=== PATIENT | male | born 1965 | race Caucasian/White ===

== ENCOUNTER 2018-07-18 03:20 | Inpatient (IN) | payer OTHER ==
[2018-07-18] MEDS ORDERED: LORazepam 2 MG/ML SDV IVPUSH ONE ×6 (03:24→10:56)
[2018-07-18] MEDS ORDERED: Haloperidol Lactate 5 MG/ML SDV IVPUSH ONE ×2 (03:25→09:10)
[2018-07-18] MEDS ORDERED: LORazepam 2 MG/ML SDV ONE ×4 (03:26→10:51)
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
[2018-07-18] MEDS: Sodium Chloride 0.9% 1,000 ML IV SCH ×3 (03:40→18:21)
[2018-07-18] MEDS ORDERED: Ketamine 500 mg/10 ML MDV IV ONE ×4 (04:56→11:22)
[2018-07-18] MEDS ORDERED: Haloperidol Lactate 5 MG/ML SDV IVPUSH PRN ×2 (07:39→09:05)
--- NOTE | 2018-07-18 08:17 | PCM.HP ---
H&P History of Present Illness - General Date of Service: 07/18/18 Admit Problem/Dx: Admission Diagnosis/Problem Admission Diagnosis/Problem Overdose of analgesic Source of Information: Patient, Old Records, Provider, RN Notes Reviewed History Limitations: Reports: Altered Mental Status, Uncooperative, Other ( Severely Restless and agitated ) - History of Present Illness Initial Comments - Free Text/Narative: This is a 53 yo white male with past medical hx/o Impaired Vision, HTN, PAT, CKD Stage 2-3, Back Pain, Exophthalmia, Migraines, Peripheral Neuropathy, Hyperthyroidism, GERD, and Obesity Class I who was brought in by paramedics escorted by local police due to perceived intoxication. On presentation to ED, he was found incoherent, non sensible, somewhat uncooperative and agitated. It was felt he was on some sort of stimulant. His breath smells alcohol during examination. While in ED, he received initial treatment but partially responded so he was brought to the unit for further management with 1 on 1 care. His initial work up in ED shows a CBC remarkable for WBC of 10.55, RBC of 4.45, MCV of 94.8, MCH of 32.8, and RDW of 44.2. His chemistry is significant for CO2 of 20, AG of 19.6, BUN of 23, Cr of 1.4, BS of 127 and Total Protein of 8.7. His UA is not suggestive of UTI but rather inadequate fluid intake. His UDS is pos for Oxy, Benzo and Salicylates. His RON level is 0.09. However while in the unit, his symptoms continue to get worse and he clinically deteriorate. Therefore to prevent further decline of his respiratory status and for his own safety, we elected to sedate him and put him on mechanical ventilator until his body clears off whatever he took on top of alcohol. He is essentially being admitted for alcohol detoxification associated with severe agitation and restlessness cannot r/o withdrawal symptoms. - Related Data Allergies/Adverse Reactions: Allergies Allergy/AdvReac Type Severity Reaction Status Date / Time venom-honey bee Allergy Anaphylactic Verified 07/18/18 18:34 [bee venom (honey bee)] Shock morphine AdvReac Mild Headache Verified 07/18/18 18:34 Home Medications: Home Meds Lisinopril 20 mg PO DAILY 11/14/13 [History] traZODone 300 mg PO BEDTIME PRN 11/14/13 [History] oxyCODONE ER [OxyCONTIN] 40 mg PO BID 05/15/14 [History] Methylphenidate HCl [Ritalin] 20 mg PO BID 10/19/14 [History] Gabapentin [Neurontin] 1,200 mg PO TID 12/13/14 [History] Omeprazole [Prilosec] 40 mg PO DAILY PRN 12/13/14 [History] SUMAtriptan [Imitrex] 20 mg INH BID PRN 12/13/14 [History] Past Medical History HEENT History: Reports: Impaired Vision Cardiovascular History: Reports: Hypertension Other Respiratory History: sleep apnea resolved with "nose and throat surgery" Other Genitourinary History: had renal failure Musculoskeletal History: Reports: Back Pain, Chronic Neurological History: Reports: Migraines Other Neuro History: .peripheral neuropathy both legs with weakness Lt. > Rt. Endocrine/Metabolic History: Reports: Hyperthyroidism Dermatologic History: Reports: Cellulitis - Infectious Disease History Infectious Disease History: Reports: Chicken Pox, MRSA - Past Surgical History HEENT Surgical History: Reports: Adenoidectomy, Other (See Below) Other Respiratory Surgeries/Procedures: sleep apnea resolved with T and A with uvula surgery Neurological Surgical History: Reports: Lumbar Spine Musculoskeletal Surgical History: Reports: Knee Replacement, Other (See Below) Social & Family History - Family History Family Medical History: Noncontributory - Caffeine Use Caffeine Use: Reports: Energy Drinks - Sexual History Sexual History: Reports: Sexually Active - Living Situation & Occupation Living situation: Reports: Occupation: Employed H&P Review of Systems - Review of Systems: Review Of Systems: Unable To Obtain Review of Systems Comment:: Unable to obtain. He was non-sensible/incoherent/restless and agitated earlier. Now he is sedated/intubated on mechanical ventilator. Exam - Exam Exam: See Below - Vital Signs Vital Signs: Last Vital Signs Temp 36.5 C 07/18/18 03:24 Pulse Resp BP 163/100 H 07/18/18 03:24 Pulse Ox - Exam General: Other (Obese) HEENT: Nares Patent, Other (b/l eye proptosis; ET and NGT in placed) Neck: Supple Lungs: Normal Respiratory Effort, Other (mechancical breath sound) Cardiovascular: Regular Rate, Regular Rhythm GI/Abdominal Exam: Normal Bowel Sounds, Soft, Non-Tender, No Organomegaly, No Distention, No Abnormal Bruit (Male) Exam: Other (indwelling florence catheter) Rectal (Males) Exam: Deferred Back Exam: Other (deferred) Extremities: Non-Tender, No Pedal Edema, Normal Capillary Refill Peripheral Pulses: 3+: Posterior Tibial (L), Posterior Tibial (R), Dorsalis Pedis (L), Dorsalis Pedis (R) Skin: Dry, Intact Neuro Extensive - Mental Status: Other (not appropriate) Psychiatric: Other (sedate/intubated on mechanical ventilator) Physical Exam Comments:: Physical exam is very limited. He is sedated/intubated on mechanical ventilator. - Patient Data Lab Results Last 24 hrs: Laboratory Results - last 24 hr 07/18/18 07/18/18 07/18/18 Range/Units 03:20 03:20 03:20 WBC 10.55 H (4.23-9.07) K/mm3 RBC 4.45 L (4.63-6.08) M/mm3 Hgb 14.6 (13.7-17.5) gm/L Hct 42.2 (40.1-51.0) % MCV 94.8 H (79.0-92.2) fl MCH 32.8 H (25.7-32.2) pg MCHC 34.6 (32.2-35.5) g/dl RDW Std Deviation 44.2 H (35.1-43.9) fL Plt Count 273 (163-337) K/mm3 MPV 10.6 (9.4-12.3) fl Neutrophils % (Manual) 52 (40-60) % Band Neutrophils % 0 (0-10) % Lymphocytes % (Manual) 38 (20-40) % Atypical Lymphs % 0 % Monocytes % (Manual) 7 (2-10) % Eosinophils % (Manual) 3 (0.8-7.0) % Basophils % (Manual) 0 L (0.2-1.2) Platelet Estimate Adequate RBC Morph Comment Normal Sodium 139 (136-145) mEq/L Potassium 3.6 (3.5-5.1) mEq/L Chloride 103 (98-107) mEq/L Carbon Dioxide 20 L (21-32) mEq/L Anion Gap 19.6 H (5-15) BUN 23 H (7-18) mg/dL Creatinine 1.4 H (0.7-1.3) mg/dL Est Cr Clr Drug Dosing TNP Estimated GFR (MDRD) 53 (>60) mL/min BUN/Creatinine Ratio 16.4 (14-18) Glucose 127 H (74-106) mg/dL Calcium 10.0 (8.5-10.1) mg/dL Total Bilirubin 0.2 (0.2-1.0) mg/dL AST 23 (15-37) U/L ALT 31 (16-63) U/L Alkaline Phosphatase 83 (46-116) U/L Total Protein 8.7 H (6.4-8.2) g/dl Albumin 4.3 (3.4-5.0) g/dl Globulin 4.4 gm/dL Albumin/Globulin Ratio 1.0 (1-2) Urine Color (Yellow) Urine Appearance (Clear) Urine pH (5.0-8.0) Ur Specific [place] (1.005-1.030) Urine Protein (Negative) Urine Glucose (UA) (Negative) Urine Ketones (Negative) Urine Occult Blood (Negative) Urine Nitrite (Negative) Urine Bilirubin (Negative) Urine Urobilinogen (0.2-1.0) Ur Leukocyte Esterase (Negative) Urine RBC (0-5) /hpf Urine WBC (0-5) /hpf Ur Epithelial Cells (0-5) /hpf Urine Bacteria (FEW) /hpf Urine Mucus (FEW) /hpf Salicylates (2.8-20) mg/dL Urine Opiates Screen (FPYOKC=451) Ur Buprenorphine Scrn (CUTOFF=10) Ur Oxycodone Screen (NDF7QR=221) Urine Methadone Screen (NZI2SY=307) Ur Propoxyphene Screen (QLCNCF=973) Acetaminophen 0 L (10-30) ug/mL Ur Barbiturates Screen (IFPKSA=767) Ur Tricyclics Screen (ZHJUYD=248) Ur Phencyclidine Scrn (CUTOFF=25) Ur Amphetamine Screen (XAMHXL=523) U Methamphetamines Scrn (DJOLWY=123) U Benzodiazepines Scrn (MAHOWX=112) U Cocaine Metab Screen (ZMWWEZ=562) U Marijuana (THC) Screen (CUTOFF=50) Ethyl Alcohol 0.09 (0.00) gm% 07/18/18 07/18/18 07/18/18 Range/Units 03:20 04:49 04:49 WBC (4.23-9.07) K/mm3 RBC (4.63-6.08) M/mm3 Hgb (13.7-17.5) gm/L Hct (40.1-51.0) % MCV (79.0-92.2) fl MCH (25.7-32.2) pg MCHC (32.2-35.5) g/dl RDW Std Deviation (35.1-43.9) fL Plt Count (163-337) K/mm3 MPV (9.4-12.3) fl Neutrophils % (Manual) (40-60) % Band Neutrophils % (0-10) % Lymphocytes % (Manual) (20-40) % Atypical Lymphs % % Monocytes % (Manual) (2-10) % Eosinophils % (Manual) (0.8-7.0) % Basophils % (Manual) (0.2-1.2) Platelet Estimate RBC Morph Comment Sodium (136-145) mEq/L Potassium (3.5-5.1) mEq/L Chloride (98-107) mEq/L Carbon Dioxide (21-32) mEq/L Anion Gap (5-15) BUN (7-18) mg/dL Creatinine (0.7-1.3) mg/dL Est Cr Clr Drug Dosing Estimated GFR (MDRD) (>60) mL/min BUN/Creatinine Ratio (14-18) Glucose (74-106) mg/dL Calcium (8.5-10.1) mg/dL Total Bilirubin (0.2-1.0) mg/dL AST (15-37) U/L ALT (16-63) U/L Alkaline Phosphatase (46-116) U/L Total Protein (6.4-8.2) g/dl Albumin (3.4-5.0) g/dl Globulin gm/dL Albumin/Globulin Ratio (1-2) Urine Color Yellow (Yellow) Urine Appearance Clear (Clear) Urine pH 5.5 (5.0-8.0) Ur Specific [place] > or = 1.030 (1.005-1.030) Urine Protein 1+ H (Negative) Urine Glucose (UA) Negative (Negative) Urine Ketones Trace H (Negative) Urine Occult Blood Negative (Negative) Urine Nitrite Negative (Negative) Urine Bilirubin Negative (Negative) Urine Urobilinogen 0.2 (0.2-1.0) Ur Leukocyte Esterase Negative (Negative) Urine RBC 0-5 (0-5) /hpf Urine WBC 0-5 (0-5) /hpf Ur Epithelial Cells 0-5 (0-5) /hpf Urine Bacteria Not seen (FEW) /hpf Urine Mucus Few (FEW) /hpf Salicylates 2.0 L (2.8-20) mg/dL Urine Opiates Screen Negative (TIYZMC=207) Ur Buprenorphine Scrn Negative (CUTOFF=10) Ur Oxycodone Screen Presumptive positive H (YBG8IZ=329) Urine Methadone Screen Negative (FMA9JN=947) Ur Propoxyphene Screen Negative (HADADO=226) Acetaminophen (10-30) ug/mL Ur Barbiturates Screen Negative (TSSKDH=854) Ur Tricyclics Screen Negative (SZJYXF=514) Ur Phencyclidine Scrn Negative (CUTOFF=25) Ur Amphetamine Screen Negative (FERRMH=686) U Methamphetamines Scrn Negative (KPSIAC=338) U Benzodiazepines Scrn Presumptive positive H (ESVHYZ=683) U Cocaine Metab Screen Negative (WUEKLP=730) U Marijuana (THC) Screen Negative (CUTOFF=50) Ethyl Alcohol (0.00) gm% Result Diagrams: 07/19/18 04:18 07/19/18 04:18 EKG INTERPRETATION EKG Date: 07/18/18 Time: 13:14 Rhythm: Other (Sinus Rhythm) Rate (Beats/Min): 79 Problem List Initiated/Reviewed/Updated: Yes Orders Last 24hrs: Active Orders 24 hr Category Date Time Status Admission Status [Patient Status] [ADT] Routine ADT 07/18/18 06:44 Active EKG Documentation Completion [RC] STAT Care 07/18/18 03:26 Active Haloperidol Lactate [Haldol] Med 07/18/18 07:39 Active 10 mg IVPUSH Q6HR PRN LORazepam [Ativan] Med 07/18/18 07:37 Active 2 mg IVPUSH Q30M PRN Sodium Chloride 0.9% [Normal Saline] 1,000 ml Med 07/18/18 03:30 Active IV ASDIRECTED One To One Therapy [BH] Stat Oth 07/18/18 07:37 Ordered Medication Orders Haloperidol Lactate (Haldol) 10 mg IVPUSH Q6HR PRN PRN Reason: Anxiety Sodium Chloride (Normal Saline) 1,000 mls @ 150 mls/hr IV ASDIRECTED [facility] Last Admin: 07/18/18 03:40 Dose: 150 mls/hr Lorazepam (Ativan) 2 mg IVPUSH Q30M PRN PRN Reason: Anxiety Assessment/Plan Comment:: Assessment/Plan: Acute: Hypermetabolic Encephalopathy on Mechanical Vent - 2/2 Unknown drug(s) he possibly he took - UDS pos for benzo and Oxy - CXR essentially shows no acute abnormal findings - Very difficult sedation; required multiple sedatives and considerable amount of paralytics during the intubation process - He is now comfortably sedated on mechanical ventilator - Head CT scan showed no acute intra-cranial abnormality - VT setting AC 500, 3PEEP, RR14 and FiO2 of 40%; will adjust pending ABG result in 3 hrs Severe Agitation/Restlessness - Unknown or Unclear etiology - Suspect he took LSD per - He carries a hx/o heavy substance abuse per brother - RON level is 0.09 - Very difficult to sedate and it took considerable amount of staff to keep stay still in bed CKD Stage 2-3 - BUN 23 and CR 1.4 - IVF at 125cc/hr - UA spec gravity shows > or = 1.030 - Florence catheter to monitor output and Strict Is/Os ETOH Abuse w/ Possible Withdrawal Symptoms - Carries a hx/o Substance Abuse - RON 0.09 - He was at [facility] having a good time with co-workers - CIWA Score: very high - Ativan/Librium/Clonidine/Topamax - Hydralazine and IVP BB for HR/BP control - Ativan for Abortive Seizure and Withdrawal Symptoms Chronic: Impaired Vision HTN PAT CKD Stage 2-3 Back Pain Migraines Peripheral Neuropathy Hyperthyroidism GERD Obesity Class I Plan: Admit to ICU Routine AM Labs One on One care CIWAA Protocol MVI, Folic Acid and Thiamine Ativan for Abortive Seizure and Withdrawal Symptoms PRN meds for Withdrawal Symptoms DVT and GI PPx: Lovenox and H2B Aspiration/Seizure Precautions Vent protocol w/ RASS of -4 for now SW/CM d/c planning SA/Psych consult once off ventilator Code Status: 1
[2018-07-18] MEDS ORDERED: SUMATRIPTAN 20 MG INH PRN (08:56)
[2018-07-18] MEDS ORDERED: hydrALAZINE 20 MG/ML SDV IVPUSH PRN (08:57)
[2018-07-18] MEDS ORDERED: LORazepam 2 MG/ML SDV IVPUSH PRN (08:57)
[2018-07-18] MEDS ORDERED: Metoprolol Tartrate 5 MG/5 ML SDV IVPUSH PRN (08:57)
[2018-07-18] MEDS ORDERED: Bisacodyl 5 MG Tab PO PRN (08:58)
[2018-07-18] MEDS ORDERED: Promethazine 6.25 MG in Sodium Chloride 0.9% 50 ML IV PRN (08:58)
[2018-07-18] MEDS ORDERED: Ondansetron 4 MG/2 ML SDV IV PRN (08:58)
[2018-07-18] MEDS ORDERED: Albuterol/Ipratropium 3.0-0.5 MG/3 ML Neb Soln NEB PRN (08:58)
[2018-07-18] MEDS ORDERED: Acetaminophen/HYDROcodone 325-5 MG Tab PO PRN (08:58)
[2018-07-18] MEDS ORDERED: Docusate Sodium 100 MG Cap PO PRN (08:58)
[2018-07-18] MEDS ORDERED: Polyethylene Glycol 3350 Powder 17 GM Packet PO PRN (08:58)
[2018-07-18] MEDS ORDERED: Acetaminophen 325 MG Tab PO PRN (08:58)
[2018-07-18] MEDS ORDERED: HYDROmorphone 1 MG/ML Syringe IVPUSH PRN (08:58)
[2018-07-18] MEDS ORDERED: Methylphenidate 10 MG Tab PO SCH (09:00)
[2018-07-18] MEDS ORDERED: cloNIDine 0.1 MG Tab PO PRN (09:02)
[2018-07-18] MEDS ORDERED: Thiamine 100 MG in Sodium Chloride 0.9% 50 ML IV ONE (09:02)
[2018-07-18] MEDS ORDERED: chlordiazePOXIDE 25 MG Cap PO PRN (09:02)
[2018-07-18] MEDS ORDERED: Folic Acid 50 MG/10 ML MDV SUBCUT ONE (09:02)
[2018-07-18] MEDS ORDERED: Sodium Chloride 0.9% 1,000 ML IV SCH (09:15)
[2018-07-18] MEDS ORDERED: Thiamine 200 MG/2 ML MDV IVPUSH ONE (09:30)
[2018-07-18] MEDS: LORazepam 2 MG/ML SDV IVPUSH PRN (10:01)
[2018-07-18] MEDS ORDERED: Rocuronium 50 MG/5 ML Vial IVPUSH ONE ×2 (11:45→12:42)
--- NOTE | 2018-07-18 11:57 | PCM.SN ---
- Free Text/Narrative Note: Upon presentation patient was still restless, severely agitated, confused, incoherent/non-sensible, mumbles and attempting to get out bed. He has urinated in bed a few times and unable to stay still. He requires one on one care at this point. No family members present at beside to give a hx of present illness. However a review of treatment he received in ED shows he has gotten multiple sedatives such as haldol, ketamine and numerous ativan but barely responsive to all of it. In the unit, he received additional haldol dose and at least a total of 10 mg of ativan and still would not calm down. Unknown and uncertain of what exactly he took (we reviewed his UDS) in the setting of worsening restlessness, agitation, confusion; we went ahead and put a tube in his throat and put him on ventilator to rest for at least 24-48hrs before he goes into respiratory distress and eventually respiratory arrest.
--- NOTE | 2018-07-18 11:57 | PCM.PRNOTE ---
- Free Text/Narrative Note: Endotracheal Intubation Date: 07/18/2018 Time: 1150 Indication: Severe Agitation, Restlessness and AMS Attending: Miracle Romo DO A time-out was completed verifying correct patient, procedure, site, positioning , and special equipment if applicable. The patient was placed in a flat position. Sedation was obtained using Ketamine 100 mg,Versed 5 mg, and additionally with Rocuronium 100 mg. The patient was not easily sedated so Propofol drip was added. Once adequate sedation is achieved he was ventilated using an ambu bag. Electronic glide scope was utilized initially using MAC 4 blade but it produced a poor view of his oropharynx. However after switching to MAC 3 blade, a Grade 1 view of the vocal cords was exposed. An 8-korean endotracheal tube was inserted and visualized going through the vocal cords. The stylette was removed. Colorimetric change was visualized on the CO2 meter. Breath sounds were heard in both lung beltran equally. The endotracheal tube was placed initially at 26 cm, measured at the lip but later adjusted to 24 cm. A chest x-ray was ordered to assess for pneumothorax and verify endotracheal tube placement.
[2018-07-18] MEDS ORDERED: Midazolam 1 MG/ML 5 ML SDV IVPUSH ONE (12:22)
[2018-07-18] MEDS ORDERED: Midazolam 1 MG/ML 2 ML SDV ONE ×2 (12:23→12:26)
[2018-07-18] MEDS ORDERED: Piperacillin/Tazobactam 4.5 GM in Sodium Chloride 0.9% 100 ML IV ONE (13:00)
[2018-07-18] MEDS: Midazolam 50 MG in Sodium Chloride 0.9% 40 ML IV SCH ×2 (13:15→22:06)
[2018-07-18] MEDS: Gabapentin 600 MG Tab PO SCH ×3 (13:26→20:41)
[2018-07-18] MEDS: Potassium Chloride 20 MEQ Tab.ER PO SCH ×2 (13:27→16:17)
[2018-07-18] MEDS: oxyCODONE ER 20 MG TAB.ER PO SCH ×2 (13:27→20:42)
[2018-07-18] MEDS: Lisinopril 20 MG Tab PO SCH (13:30)
[2018-07-18] MEDS: Saccharomyces Boulardii (Probiotic) 250 MG Cap PO SCH ×2 (16:17→20:41)
[2018-07-18] MEDS: Pantoprazole 40 MG Vial IV SCH ×2 (16:17→20:55)
--- NOTE | 2018-07-18 16:23 | PCM.SN ---
- Free Text/Narrative Note: Met up with his and 's friend. They think he may have been given LSD by his co-workers at [facility]. His last known well was 2 AM this morning. He was not sick or perceived to be ill at that time. He is a non known illicit drug user because "he loves his job" according to his . His also states that he hates using narcotic drugs. His was informed about what we did and explained to her why we had to put him on a ventilator. His head CT scan was taken to make sure nothing is abnormal. We attempted to perform a LP a few times to r/o meningo-encephalitis but w/o much success. Additionally, we informed his , patient hopefully gonna be on the vent for at least 48hrs to ride out whatever he took until his body clears it off his system.
--- NOTE | 2018-07-18 16:23 | PCM.SN ---
- Free Text/Narrative Note: Attempted Lumbar Puncture Time Start: 1455 Stop: 1545 I was called to see Troy Romo in the ICU for lumbar puncture. The chart was reviewed. Troy is intubated, agitated, and on IV sedation infusion. His Akila Romo was called for consent. Akila was able to verify Troy is not on anticoagulation. Troy has had a previous lumbar back surgery involving rods and plates per her description. After discussing the risks including, but not limited to, bleeding, infection, nerve damage, post dural puncture, and possibility of not being able to successfully perform the procedure given his history of lumbar surgery. Informed consent was received and verified with RN. Troy Romo was placed in the lateral position with the assistance of 3 nursing staff. Sedation was increased to assist with immobility during the procedure. After identifying anatomic landmarks the skin was prepped with ChloraPrep x 3 and allowed to dry. Difficult palpation of spinous processes, hip crest palpable. Sterile precautions were observed, including masks by everyone in the room, a cap, sterile drape, and sterile gloves. The skin and subcutaneous tissues were anesthetized with 1% lidocaine at L3-4. A 22 gauge Whitacure 3-1/2 inch was advanced slowly with stylet removed intermittently to check for CSF fluid. No dural pop was appreciated. Needle was redirected and repositioned without achieving appropriate placement. Troy was repositioned by assisting staff and sedation increased to help with agitation. Dr. Romo was notified of difficulty and came to the room to assist. The skin and subcutaneous tissues were anesthetized with 1% lidocaine at L2-3. A 22 gauge Whitacure 3-1/2 inch was advanced slowly with stylet removed intermittently to check for CSF fluid. No dural pop was appreciated. Needle was redirected and repositioned without achieving appropriate placement. A 25 gauge Whitacure 3-1/ 2 inch was advanced slowly with stylet removed intermittently to check for CSF fluid. No dural pop was appreciated. Needle was redirected and repositioned without achieving appropriate placement. Akila Romo was informed of the inability to obtain CSF sample at this time. Dr. Romo present and aware. Kwasi Duque, [employer]
[2018-07-18] MEDS ORDERED: Enoxaparin 30 MG/0.3 ML Syringe SUBCUT SCH (16:30)
[2018-07-18] MEDS: METHYLPHENIDATE 10 MG PO SCH (20:42)
[2018-07-18] MEDS: Piperacillin/Tazobactam 4.5 GM in Sodium Chloride 0.9% 100 ML IV SCH (20:55)
[2018-07-18] MEDS: Topiramate 25 MG Tab PO SCH (22:12)
[2018-07-18] MEDS: QUEtiapine 25 MG Tab PO SCH (22:12)
[2018-07-19] MEDS: Sodium Chloride 0.9% 1,000 ML IV SCH ×3 (01:13→15:48)
[2018-07-19] MEDS: Piperacillin/Tazobactam 4.5 GM in Sodium Chloride 0.9% 100 ML IV SCH ×3 (05:03→20:41)
--- NOTE | 2018-07-19 07:04 | CR ---
Chest: Portable supine view of the chest was obtained (12:07 PM). Comparison: Previous chest x-ray performed earlier on the same day (12:00 PM). Endotracheal tube appears satisfactory in position. Heart size is within normal. Tortuous thoracic aorta is seen. Study still obtained in mild expiratory phase causing some increased density within both lungs. Bony structures are grossly intact. Impression: 1. Satisfactory position of endotracheal tube. 2. Study continues to be obtained in expiratory phase causing areas of increased density within both lungs. Diagnostic code #3 Mild agree with preliminary report from [facility], finalized on 07/18/18, 1:48 PM Central Time, code #2
--- NOTE | 2018-07-19 07:04 | CR ---
Chest: Portable view of the chest was obtained (12:00 PM) Comparison: Previous chest x-ray of 03/06/15. Tip of endotracheal tube lies at the level of the lyla. This should be withdrawn by approximately 3-4 cm. Study was obtained in expiration. This causes some areas of increased density within both lungs. Heart size is within normal limits for portable technique. Impression: 1. Increased density within both lung bases. Most of this likely relates to expiratory film. 2. Tip of endotracheal tube lies at the level of the lyla as noted above. 3. Heart size felt to be within normal limits for portable technique. Diagnostic code #5 Minimal disagree with preliminary report from [facility], finalized on 07/18/18, 1:45 PM Central Time, code #2
--- NOTE | 2018-07-19 07:08 | CR ---
Chest: Portable view of the chest was obtained (12:52 PM). Comparison: Previous chest x-rays performed on the same day, most recent study was performed at 12:07 PM. Heart size within normal limits for portable technique. Tortuous thoracic aorta is seen. Tip of endotracheal tube is satisfactory in position with tip lying at the level of the clavicles. Nasogastric tube is coiled within the stomach. Lungs are better aerated with better inspiratory study. No acute parenchymal change is appreciated. Impression: 1. Satisfactory position of endotracheal tube and nasogastric tube. 2. Better aeration of both lungs with no acute parenchymal change being seen. Diagnostic code #2 Slightly agree with preliminary report from [facility], finalized on 07/18/18, 2:01 PM Central Time
--- NOTE | 2018-07-19 08:07 | CR ---
Chest: Portable view of the chest was obtained. Comparison: Prior chest x-ray of 07/18/18. Heart is slightly more prominent than on prior exam. Tortuous thoracic aorta is seen. Lungs show minimal bibasilar atelectasis. Lungs otherwise are clear. Endotracheal tube is seen with tip lying at the level of the clavicles which is satisfactory position. Nasogastric tube lies within the expected area of the stomach. Impression: 1. Heart size slightly more prominent than on prior exam. 2. Mild bibasilar atelectasis. 3. Endotracheal tube and nasogastric tube as noted above. Diagnostic code #2
--- NOTE | 2018-07-19 08:12 | CT ---
Head CT Technique: Multiple axial sections through the brain were obtained. Intravenous contrast was not utilized. Comparison: Prior head CT exam of 01/11/15. Findings: Ventricles along with basal cisterns and sulci over the convexities are within normal limits. So-called empty sella is again noted which is stable from prior head CT. No other abnormal parenchymal densities are seen. No evidence of intracranial hemorrhage. No midline shift or mass effect is seen. Bone window settings were reviewed which show the visualized sinuses to appear clear. No acute calvarial abnormality is seen. Impression: 1. Incidental empty sella which is stable from prior head CT exam. 2. Nothing acute is appreciated on noncontrast head CT exam. Diagnostic code #2 I agree with preliminary report from [facility], finalized on 07/18/18, 3:50 PM Central Time
[2018-07-19] MEDS: Saccharomyces Boulardii (Probiotic) 250 MG Cap PO SCH ×3 (08:44→20:27)
[2018-07-19] MEDS: Famotidine 20 MG Tab PO SCH ×2 (08:45→20:28)
[2018-07-19] MEDS: Gabapentin 600 MG Tab PO SCH ×3 (08:45→20:28)
[2018-07-19] MEDS: Lisinopril 20 MG Tab PO SCH (08:45)
[2018-07-19] MEDS: Folic Acid 1 MG Tab PO SCH (08:45)
[2018-07-19] MEDS: Thiamine 100 MG Tab PO SCH (08:46)
[2018-07-19] MEDS: METHYLPHENIDATE 10 MG PO SCH ×2 (08:46→20:28)
[2018-07-19] MEDS: Multivitamins,Therapeutic Tab PO SCH (08:46)
[2018-07-19] MEDS: Topiramate 25 MG Tab PO SCH ×2 (08:46→20:28)
[2018-07-19] MEDS: oxyCODONE ER 20 MG TAB.ER PO SCH ×2 (08:48→20:28)
[2018-07-19] MEDS ORDERED: Enoxaparin 30 MG/0.3 ML Syringe SUBCUT SCH (09:00)
[2018-07-19] MEDS: Midazolam 50 MG in Sodium Chloride 0.9% 40 ML IV SCH ×2 (11:07→22:35)
[2018-07-19] MEDS ORDERED: Thiamine 200 MG/2 ML MDV IVPUSH ONE (15:30)
[2018-07-19] MEDS ORDERED: Folic Acid 50 MG/10 ML MDV SUBCUT ONE (15:30)
--- NOTE | 2018-07-19 16:26 | PCM.PN ---
- General Info Date of Service: 07/19/18 Admission Dx/Problem (Free Text): Admission Diagnosis/Problem Admission Diagnosis/Problem Overdose of analgesic Subjective Update: Follow Up Functional Status: Reports: Pain Controlled, Urinating. Denies: New Symptoms - Review of Systems General: Denies: Fever, Chills Gastrointestinal: Denies: Nausea, Vomiting Systems Review Comment:: Patient is sedated/intubated on mechanical ventilator. - Patient Data Vitals - Most Recent: Last Vital Signs Temp 36.1 C 07/19/18 12:00 Pulse 59 L 07/19/18 15:00 Resp 15 07/19/18 15:00 BP 127/86 07/19/18 15:00 Pulse Ox 99 07/19/18 15:00 Weight - Most Recent: 127.596 kg I&O - Last 24 Hours: Intake & Output 07/19/18 07/19/18 07/19/18 06:59 14:59 22:59 Intake Total 3054 Output Total 450 600 Balance 2604 -600 Lab Results Last 24 Hours: Laboratory Results - last 24 hr 07/19/18 07/19/18 07/19/18 Range/Units 04:18 04:18 06:35 WBC 8.73 (4.23-9.07) K/mm3 RBC 4.03 L (4.63-6.08) M/mm3 Hgb 13.2 L (13.7-17.5) gm/L Hct 39.5 L (40.1-51.0) % MCV 98.0 H (79.0-92.2) fl MCH 32.8 H (25.7-32.2) pg MCHC 33.4 (32.2-35.5) g/dl RDW Std Deviation 48.3 H (35.1-43.9) fL Plt Count 215 (163-337) K/mm3 MPV 11.1 (9.4-12.3) fl Neut % (Auto) 68.9 H (34.0-67.9) % Lymph % (Auto) 17.9 L (21.8-53.1) % Victoria % (Auto) 10.7 (5.3-12.2) % Eos % (Auto) 1.8 (0.8-7.0) Baso % (Auto) 0.6 (0.1-1.2) % Neut # (Auto) 6.02 H (1.78-5.38) K/mm3 Lymph # (Auto) 1.56 (1.32-3.57) K/mm3 Victoria # (Auto) 0.93 H (0.30-0.82) K/mm3 Eos # (Auto) 0.16 (0.04-0.54) K/mm3 Baso # (Auto) 0.05 (0.01-0.08) K/mm3 Puncture Site Rt radial ABG pH 7.37 (7.35-7.45) ABG pCO2 39.3 (35.0-45.0) mmHg ABG pO2 80.0 (80.0-100.0) mmHg ABG HCO3 22.1 (22.0-26.0) meq/L ABG O2 Saturation 95.1 L (96.0-97.0) % ABG Base Excess -2.4 L (-2-2.0) Jeramie Test Positive A-a Gradient 63 mmHg O2 Delivery Device Ventilator FiO2 30.00 (21.00-100.00) % Tidal Volume 500.0 cc PEEP 5.0 cmH20 Sodium 141 (136-145) mEq/L Potassium 3.7 (3.5-5.1) mEq/L Chloride 108 H (98-107) mEq/L Carbon Dioxide 24 (21-32) mEq/L Anion Gap 12.7 (5-15) BUN 14 (7-18) mg/dL Creatinine 1.0 (0.7-1.3) mg/dL Est Cr Clr Drug Dosing 103.68 mL/min Estimated GFR (MDRD) > 60 (>60) mL/min BUN/Creatinine Ratio 14.0 (14-18) Glucose 97 (74-106) mg/dL Calcium 9.3 (8.5-10.1) mg/dL Magnesium 2.0 (1.8-2.4) mg/dl Free T4 1.18 (0.76-1.46) ng/dL TSH 3rd Generation 1.204 (0.358-3.74) uIU/mL Med Orders - Current: Current Medications Acetaminophen (Tylenol) 650 mg PO Q4H PRN PRN Reason: Pain (Mild 1-3)/fever Hydrocodone Bitart/Acetaminophen (Wann 325-5 Mg) 1 tab PO Q4H PRN PRN Reason: Pain (moderate 4-6) Albuterol/Ipratropium (Duoneb 3.0-0.5 Mg/3 Ml) 3 ml NEB Q4H PRN PRN Reason: Shortness Of Breath/wheezing Bisacodyl (Dulcolax) 5 mg PO DAILY PRN PRN Reason: Constipation Chlordiazepoxide HCl (Librium) 25 mg PO Q8H PRN PRN Reason: Withdrawal Symptoms Clonidine HCl (Catapres) 0.1 mg PO Q4H PRN PRN Reason: Agitation Docusate Sodium (Colace) 100 mg PO BID PRN PRN Reason: Constipation Enoxaparin Sodium (Lovenox) 40 mg SUBCUT Q24H RADHA Famotidine (Pepcid) 20 mg PO Q12H [facility] Last Admin: 07/19/18 08:45 Dose: Not Given Folic Acid (Folic Acid) 1 mg PO DAILY [facility] Stop: 07/21/18 09:01 Last Admin: 07/19/18 08:45 Dose: Not Given Gabapentin (Neurontin) 1,200 mg PO TID [facility] Last Admin: 07/19/18 08:45 Dose: Not Given Haloperidol Lactate (Haldol) 10 mg IVPUSH Q6H PRN PRN Reason: Agitation Last Admin: 07/18/18 10:26 Dose: 10 mg Hydralazine HCl (Apresoline) 20 mg IVPUSH Q4H PRN PRN Reason: Hypertension Hydromorphone HCl (Dilaudid) 0.25 mg IVPUSH Q2H PRN PRN Reason: Pain (severe 7-10) Sodium Chloride (Normal Saline) 1,000 mls @ 150 mls/hr IV ASDIRECTED [facility] Last Admin: 07/19/18 15:48 Dose: 150 mls/hr Promethazine HCl 6.25 mg/ (Sodium Chloride) 50.25 mls @ 100 mls/hr IV Q6H PRN PRN Reason: Nausea/Vomiting Midazolam HCl 50 mg/ Sodium (Chloride) 50 mls @ 0.5 mls/hr IV TITRATE [facility]; Protocol Last Titration: 07/19/18 15:15 Dose: 4 mg/hr, 4 mls/hr Piperacillin Sod/Tazobactam (Sod 4.5 gm/ Sodium Chloride) 100 mls @ 25 mls/hr IV Q8H [facility] Last Admin: 07/19/18 13:50 Dose: 25 mls/hr Propofol (Diprivan 100 Ml) 100 mls @ 22.853 mls/hr IV TITRATE [facility]; Protocol Last Titration: 07/19/18 15:37 Dose: 50 mcg/kg/min, 38.088 mls/hr Lisinopril (Prinivil) 20 mg PO DAILY [facility] Last Admin: 07/19/18 08:45 Dose: Not Given Lorazepam (Ativan) 2 mg IVPUSH Q30M PRN PRN Reason: Anxiety Last Admin: 07/18/18 10:01 Dose: 2 mg Lorazepam (Ativan) 2 mg IVPUSH Q4H PRN PRN Reason: Seizures Lorazepam (Ativan) 0 mg IVPUSH Q4H PRN; Protocol PRN Reason: Withdrawal Symptoms Magnesium Sulfate (Pharmacy To Dose - Magnesium Replacement) 1 dose .XX ASDIRECTED [facility] Metoprolol Tartrate (Lopressor) 5 mg IVPUSH Q4H PRN PRN Reason: Tachycardia Last Admin: 07/18/18 12:18 Dose: 5 mg Multivitamins (Thera) 1 each PO DAILY [facility] Last Admin: 07/19/18 08:46 Dose: Not Given Ondansetron HCl (Zofran) 4 mg IV Q6H PRN PRN Reason: Nausea/Vomiting Oxycodone HCl (Oxycontin) 40 mg PO BID [facility] Last Admin: 07/19/18 08:48 Dose: Not Given Pantoprazole Sodium (Protonix Iv) 40 mg IVPUSH BID [facility] Sumatriptan [Imitrex (] 20 Mg) 0 each INH BID PRN PRN Reason: Headache/Pain Methylphenidate 10 (Mg Tab.) 0 each PO BID [facility] Last Admin: 07/19/18 08:46 Dose: Not Given Polyethylene Glycol (Miralax) 17 gm PO DAILY PRN PRN Reason: Constipation Potassium Chloride (Pharmacy To Dose - Potassium Replacement) 1 dose .XX ASDIRECTED [facility] Quetiapine Fumarate (Seroquel) 50 mg PO BEDTIME [facility] Last Admin: 07/18/18 22:12 Dose: Not Given Saccharomyces Boulardii (Florastor) 250 mg PO TID [facility] Last Admin: 07/19/18 08:44 Dose: Not Given Senna/Docusate Sodium (Senna Plus) 1 tab PO BID PRN PRN Reason: Constipation Thiamine HCl (Vitamin B-1) 100 mg PO DAILY [facility] Last Admin: 07/19/18 08:46 Dose: Not Given Topiramate (Topamax) 25 mg PO BID [facility] Last Admin: 07/19/18 08:46 Dose: Not Given Discontinued Medications Enoxaparin Sodium (Lovenox) 30 mg SUBCUT Q24H [facility] Last Admin: 07/18/18 18:25 Dose: Not Given Enoxaparin Sodium (Lovenox) 30 mg SUBCUT Q24H [facility] Last Admin: 07/19/18 08:44 Dose: 30 mg Folic Acid (Folic Acid) 1 mg SUBCUT ONETIME ONE Stop: 07/18/18 09:03 Last Admin: 07/18/18 16:49 Dose: Not Given Folic Acid (Folic Acid) 1 mg SUBCUT ONETIME ONE Stop: 07/19/18 15:31 Last Admin: 07/19/18 15:44 Dose: 1 mg Haloperidol Lactate (Haldol) 10 mg IVPUSH ONETIME ONE Stop: 07/18/18 03:26 Last Admin: 07/18/18 03:36 Dose: 10 mg Haloperidol Lactate (Haldol) 10 mg IVPUSH Q6HR PRN PRN Reason: Anxiety Haloperidol Lactate (Haldol) 5 mg IVPUSH ONETIME ONE Stop: 07/18/18 09:11 Last Admin: 07/18/18 09:12 Dose: 5 mg Thiamine HCl 100 mg/ Sodium (Chloride) 51 mls @ 100 mls/hr IV ONETIME ONE Stop: 07/18/18 09:32 Last Admin: 07/18/18 16:21 Dose: Not Given Sodium Chloride (Normal Saline) 1,000 mls @ 999 mls/hr IV ONETIME [facility] Last Admin: 07/18/18 09:19 Dose: 999 mls/hr Piperacillin Sod/Tazobactam (Sod 4.5 gm/ Sodium Chloride) 100 mls @ 200 mls/hr IV ONETIME ONE Stop: 07/18/18 13:29 Last Admin: 07/18/18 13:46 Dose: 200 mls/hr Ketamine HCl (Ketalar) 50 mg IV ONETIME ONE Stop: 07/18/18 04:57 Last Admin: 07/18/18 05:01 Dose: 50 mg Ketamine HCl (Ketalar) 50 mg IV ONETIME ONE Stop: 07/18/18 07:13 Last Admin: 07/18/18 06:56 Dose: 50 mg Ketamine HCl (Ketalar) 50 mg IV ONETIME ONE Stop: 07/18/18 11:21 Last Admin: 07/18/18 11:20 Dose: 50 mg Ketamine HCl (Ketalar) 50 mg IV ONETIME ONE Stop: 07/18/18 11:23 Last Admin: 07/18/18 11:22 Dose: 50 mg Lorazepam (Ativan) 2 mg IVPUSH ONETIME ONE Stop: 07/18/18 03:25 Last Admin: 07/18/18 03:38 Dose: 2 mg Lorazepam (Ativan) Confirm Administered Dose 2 mg .ROUTE .STK-MED ONE Stop: 07/18/18 03:27 Last Admin: 07/18/18 03:41 Dose: Not Given Lorazepam (Ativan) 2 mg IVPUSH ONETIME ONE Stop: 07/18/18 04:10 Last Admin: 07/18/18 04:12 Dose: 2 mg Lorazepam (Ativan) 2 mg IVPUSH ONETIME ONE Stop: 07/18/18 04:58 Last Admin: 07/18/18 04:45 Dose: 2 mg Lorazepam (Ativan) 2 mg IVPUSH ONETIME ONE Stop: 07/18/18 07:45 Last Admin: 07/18/18 07:49 Dose: 2 mg Lorazepam (Ativan) Confirm Administered Dose 2 mg .ROUTE .STK-MED ONE Stop: 07/18/18 07:48 Last Admin: 07/18/18 10:08 Dose: Not Given Lorazepam (Ativan) Confirm Administered Dose 2 mg .ROUTE .STK-MED ONE Stop: 07/18/18 09:57 Last Admin: 07/18/18 10:07 Dose: Not Given Lorazepam (Ativan) Confirm Administered Dose 2 mg .ROUTE .STK-MED ONE Stop: 07/18/18 10:52 Last Admin: 07/18/18 16:22 Dose: Not Given Lorazepam (Ativan) 4 mg IVPUSH ONETIME ONE Stop: 07/18/18 10:52 Last Admin: 07/18/18 10:51 Dose: 4 mg Lorazepam (Ativan) 5 mg IVPUSH ONETIME ONE Stop: 07/18/18 10:57 Last Admin: 07/18/18 10:56 Dose: 5 mg Methylphenidate HCl (Ritalin) 20 mg PO BID [facility] Last Admin: 07/18/18 16:20 Dose: Not Given Midazolam HCl (Versed 1 Mg/Ml) 5 mg IVPUSH ONETIME ONE Stop: 07/18/18 12:23 Last Admin: 07/18/18 11:45 Dose: 5 mg Midazolam HCl (Versed 1 Mg/Ml) Confirm Administered Dose 2 mg .ROUTE .STK-MED ONE Stop: 07/18/18 12:24 Last Admin: 07/18/18 12:25 Dose: 2 mg Midazolam HCl (Versed 1 Mg/Ml) Confirm Administered Dose 4 mg .ROUTE .STK-MED ONE Stop: 07/18/18 12:27 Last Admin: 07/18/18 12:29 Dose: 4 mg Pantoprazole Sodium (Protonix Iv) 40 mg IV Q12HR [facility] Stop: 07/18/18 21:01 Last Admin: 07/18/18 20:55 Dose: 40 mg Potassium Chloride (Klor-Con M20) 40 meq PO Q4H [facility] Stop: 07/18/18 14:01 Last Admin: 07/18/18 16:17 Dose: Not Given Rocuronium Carbon (Zemuron) 50 mg IVPUSH ONETIME ONE Stop: 07/18/18 12:43 Last Admin: 07/18/18 11:46 Dose: 50 mg Rocuronium Carbon (Zemuron) 50 mg IVPUSH ONETIME ONE Stop: 07/18/18 11:46 Last Admin: 07/18/18 11:46 Dose: 50 mg Thiamine HCl (Vitamin B-1) 100 mg IVPUSH ONETIME ONE Stop: 07/18/18 09:31 Last Admin: 07/18/18 16:49 Dose: Not Given Thiamine HCl (Vitamin B-1) 100 mg IVPUSH ONETIME ONE Stop: 07/19/18 15:31 Last Admin: 07/19/18 15:29 Dose: 100 mg - Exam General: Obtunded HEENT: Pupils Equal, Pupils Reactive Lungs: Other (mechanical breath sound) GI/Abdominal Exam: Normal Bowel Sounds (Male) Exam: Other (indwelling florence catheter) Back Exam: Other (deferred) Extremities: Normal Inspection, Non-Tender, No Pedal Edema, Normal Capillary Refill Peripheral Pulses: 2+: Dorsalis Pedis (L), Dorsalis Pedis (R) Skin: Warm, Dry, Intact Neurological: Other (deferred) Physical Findings Comments:: Physical exam is limited. He is sedated, intubated on mechanical ventilator - Problem List Review Problem List Initiated/Reviewed/Updated: Yes - My Orders Last 24 Hours: My Active Orders 07/18/18 15:30 CELL COUNT,CSF 07/18/18 18:14 SCD [Sequential Compression Device] [OM.PC] Routine 07/18/18 18:37 Urinary Catheter Assessment [RC] Q4HR 07/18/18 21:00 Patient's Own Medication [Ptom] 0 each PO BID Piperacillin/Tazobactam [Piperacil-Tazobact] 4.5 gm Sodium Chloride 0.9% [ Normal Saline] 100 ml IV Q8H QUEtiapine [SEROquel] 50 mg PO BEDTIME Topiramate [Topamax] 25 mg PO BID 07/18/18 Dinner NPO [Nothing Per Oral Diet] [DIET] 07/19/18 09:00 Famotidine [Pepcid] 20 mg PO Q12H Folic Acid 1 mg PO DAILY Multivitamins,Therapeutic [Thera] 1 each PO DAILY Thiamine [Vitamin B-1] 100 mg PO DAILY 07/19/18 21:00 Pantoprazole [ProTONIX IV] 40 mg IVPUSH BID 07/20/18 05:11 BASIC METABOLIC PANEL,BMP [CHEM] AM CBC WITH AUTO DIFF [HEME] AM MAGNESIUM [CHEM] AM 07/20/18 09:00 Enoxaparin [Lovenox] 40 mg SUBCUT Q24H 07/21/18 05:11 BASIC METABOLIC PANEL,BMP [CHEM] AM MAGNESIUM [CHEM] AM 07/22/18 05:11 BASIC METABOLIC PANEL,BMP [CHEM] AM MAGNESIUM [CHEM] AM 07/23/18 05:11 BASIC METABOLIC PANEL,BMP [CHEM] AM MAGNESIUM [CHEM] AM - Plan Plan:: Assessment/Plan: Acute: Hypermetabolic Encephalopathy on Mechanical Vent - 2/2 Unknown drug(s) he possibly he took - UDS pos for benzo and Oxy - CXR essentially shows no acute abnormal findings - Very difficult sedation; required multiple sedatives and considerable amount of paralytics during the intubation process - He is now comfortably sedated on mechanical ventilator - Head CT scan showed no acute intra-cranial abnormality - ABG this AM shows pH of 7.37, pCO2 of 39.3, pO2 of 80, HCO3 of 22.1 and O2 Sat of 95.1 - VT setting AC 500, 5PEEP, RR14 and FiO2 of 30%; Will keep Vet setting the same and plan for extubation in AM CKD Stage 2-3 - BUN 23 and CR 1.4 - IVF at 125cc/hr - UA spec gravity shows > or = 1.030 - Florence catheter to monitor output and Strict Is/Os ETOH Abuse w/ Possible Withdrawal Symptoms - Carries a hx/o Substance Abuse - RON 0.09 - He was at [facility] having a good time with co-workers - CIWA Score: very high - Ativan/Librium/Clonidine/Topamax - Hydralazine and IVP BB for HR/BP control - Ativan for Abortive Seizure and Withdrawal Symptoms Resolved: S/p Severe Agitation/Restlessness - Unknown or Unclear etiology - Suspect he took LSD per - He carries a hx/o heavy substance abuse per brother - RON level is 0.09 - Very difficult to sedate and it took considerable amount of staff to keep stay still in bed Chronic: Impaired Vision HTN PAT CKD Stage 2-3 Back Pain Migraines Peripheral Neuropathy Hyperthyroidism GERD Obesity Class I Plan: He is sedated and comfortable. He is hemodynamically stable. His urine output is great Routine AM Labs Discontinue One on One care CIWAA Protocol for since he is now on ventilator MVI, Folic Acid and Thiamine Ativan for Abortive Seizure and Withdrawal Symptoms PRN meds for Withdrawal Symptoms DVT and GI PPx: Lovenox and H2B Aspiration/Seizure Precautions Vent protocol w/ RASS of -4 for now SW/CM d/c planning SA/Psych consult once off ventilator Code Status: 1 Plan for extubation in AM
[2018-07-19] MEDS ORDERED: cloNIDine 0.3 MG/Day Transdermal Patch TRDERM ONE (18:00)
[2018-07-19] MEDS ORDERED: Morphine 2 MG/ML Syringe IVPUSH SCH (18:15)
[2018-07-19] MEDS ORDERED: Bumetanide 1 MG/4 ML MDV IVPUSH ONE (18:41)
[2018-07-19] MEDS: HYDROmorphone 1 MG/ML Syringe IVPUSH SCH ×2 (19:11→23:15)
[2018-07-19] MEDS: QUEtiapine 25 MG Tab PO SCH (20:28)
[2018-07-19] MEDS: Pantoprazole 40 MG Vial IVPUSH SCH (20:41)
[2018-07-20] MEDS: HYDROmorphone 1 MG/ML Syringe IVPUSH SCH ×2 (02:10→21:51)
[2018-07-20] MEDS: Midazolam 50 MG in Sodium Chloride 0.9% 40 ML IV SCH (03:32)
[2018-07-20] MEDS: Piperacillin/Tazobactam 4.5 GM in Sodium Chloride 0.9% 100 ML IV SCH (04:18)
[2018-07-20] MEDS ORDERED: Bumetanide 1 MG/4 ML MDV IVPUSH ONE (05:11)
[2018-07-20] MEDS: Sodium Chloride 0.9% 1,000 ML IV SCH ×2 (06:10→12:06)
--- NOTE | 2018-07-20 07:08 | PCM.SN ---
- Free Text/Narrative Note: Patient seen and examined at bedside. No issues overnight. His sedatives have been completely shut off and ready to come off vent. At about 0720, he was successfully extubated. Post extubation x-ray is pending.
--- NOTE | 2018-07-20 07:08 | PCM.PN ---
- General Info Date of Service: 07/20/18 Admission Dx/Problem (Free Text): Admission Diagnosis/Problem Admission Diagnosis/Problem Overdose of analgesic Subjective Update: Follow Up Functional Status: Reports: Pain Controlled, Urinating. Denies: New Symptoms - Review of Systems General: Denies: Fever, Chills HEENT: Reports: No Symptoms Systems Review Comment:: No overnight or acute issues. He comfortable and still sedated on mechanical vent. - Patient Data Vitals - Most Recent: Last Vital Signs Temp 36.3 C 07/20/18 04:00 Pulse 83 07/20/18 06:00 Resp 19 07/20/18 06:28 BP 111/84 07/20/18 06:00 Pulse Ox 98 07/20/18 06:28 Weight - Most Recent: 127.868 kg I&O - Last 24 Hours: Intake & Output 07/19/18 07/20/18 07/20/18 22:59 06:59 14:59 Intake Total 2856 1000 Output Total 2300 1310 Balance 556 -310 Lab Results Last 24 Hours: Laboratory Results - last 24 hr 07/19/18 07/20/18 07/20/18 Range/Units 19:35 04:17 04:17 WBC 9.55 H (4.23-9.07) K/mm3 RBC 4.22 L (4.63-6.08) M/mm3 Hgb 13.5 L (13.7-17.5) gm/L Hct 41.0 (40.1-51.0) % MCV 97.2 H (79.0-92.2) fl MCH 32.0 (25.7-32.2) pg MCHC 32.9 (32.2-35.5) g/dl RDW Std Deviation 48.2 H (35.1-43.9) fL Plt Count 226 (163-337) K/mm3 MPV 11.3 (9.4-12.3) fl Neut % (Auto) 72.4 H (34.0-67.9) % Lymph % (Auto) 14.3 L (21.8-53.1) % [place] % (Auto) 8.9 (5.3-12.2) % Eos % (Auto) 3.8 (0.8-7.0) Baso % (Auto) 0.5 (0.1-1.2) % Neut # (Auto) 6.91 H (1.78-5.38) K/mm3 Lymph # (Auto) 1.37 (1.32-3.57) K/mm3 [place] # (Auto) 0.85 H (0.30-0.82) K/mm3 Eos # (Auto) 0.36 (0.04-0.54) K/mm3 Baso # (Auto) 0.05 (0.01-0.08) K/mm3 Sodium 143 141 (136-145) mEq/L Potassium 3.2 L 3.1 L (3.5-5.1) mEq/L Chloride 109 H 106 (98-107) mEq/L Carbon Dioxide 23 24 (21-32) mEq/L Anion Gap 14.2 14.1 (5-15) BUN 9 10 (7-18) mg/dL Creatinine 0.9 1.0 (0.7-1.3) mg/dL Est Cr Clr Drug Dosing 115.20 103.68 mL/min Estimated GFR (MDRD) > 60 > 60 (>60) mL/min BUN/Creatinine Ratio 10.0 L 10.0 L (14-18) Glucose 97 94 (74-106) mg/dL Calcium 9.2 9.0 (8.5-10.1) mg/dL Magnesium 1.8 1.7 L (1.8-2.4) mg/dl Med Orders - Current: Current Medications Acetaminophen (Tylenol) 650 mg PO Q4H PRN PRN Reason: Pain (Mild 1-3)/fever Hydrocodone Bitart/Acetaminophen ([place] 325-5 Mg) 1 tab PO Q4H PRN PRN Reason: Pain (moderate 4-6) Albuterol/Ipratropium (Duoneb 3.0-0.5 Mg/3 Ml) 3 ml NEB Q4H PRN PRN Reason: Shortness Of Breath/wheezing Bisacodyl (Dulcolax) 5 mg PO DAILY PRN PRN Reason: Constipation Chlordiazepoxide HCl (Librium) 25 mg PO Q8H PRN PRN Reason: Withdrawal Symptoms Clonidine HCl (Catapres) 0.1 mg PO Q4H PRN PRN Reason: Agitation Docusate Sodium (Colace) 100 mg PO BID PRN PRN Reason: Constipation Enoxaparin Sodium (Lovenox) 40 mg SUBCUT Q24H [facility] Famotidine (Pepcid) 20 mg PO Q12H [facility] Last Admin: 07/19/18 20:28 Dose: Not Given Folic Acid (Folic Acid) 1 mg PO DAILY [facility] Stop: 07/21/18 09:01 Last Admin: 07/19/18 08:45 Dose: Not Given Gabapentin (Neurontin) 1,200 mg PO TID [facility] Last Admin: 07/19/18 20:28 Dose: Not Given Haloperidol Lactate (Haldol) 10 mg IVPUSH Q6H PRN PRN Reason: Agitation Last Admin: 07/18/18 10:26 Dose: 10 mg Hydralazine HCl (Apresoline) 20 mg IVPUSH Q4H PRN PRN Reason: Hypertension Last Admin: 07/19/18 17:08 Dose: 20 mg Hydromorphone HCl (Dilaudid) 2 mg IVPUSH Q4H [facility] Last Admin: 07/20/18 02:10 Dose: 2 mg Sodium Chloride (Normal Saline) 1,000 mls @ 150 mls/hr IV ASDIRECTED [facility] Last Admin: 07/20/18 06:10 Dose: 50 mls/hr Promethazine HCl 6.25 mg/ (Sodium Chloride) 50.25 mls @ 100 mls/hr IV Q6H PRN PRN Reason: Nausea/Vomiting Midazolam HCl 50 mg/ Sodium (Chloride) 50 mls @ 0.5 mls/hr IV TITRATE [facility]; Protocol Last Titration: 07/20/18 06:37 Dose: 5 mg/hr, 5 mls/hr Piperacillin Sod/Tazobactam (Sod 4.5 gm/ Sodium Chloride) 100 mls @ 25 mls/hr IV Q8H [facility] Last Admin: 07/20/18 04:18 Dose: 25 mls/hr Propofol (Diprivan 100 Ml) 100 mls @ 22.853 mls/hr IV TITRATE [facility]; Protocol Last Titration: 07/20/18 06:19 Dose: 35 mcg/kg/min, 26.662 mls/hr Lisinopril (Prinivil) 20 mg PO DAILY [facility] Last Admin: 07/19/18 08:45 Dose: Not Given Lorazepam (Ativan) 2 mg IVPUSH Q30M PRN PRN Reason: Anxiety Last Admin: 07/18/18 10:01 Dose: 2 mg Lorazepam (Ativan) 2 mg IVPUSH Q4H PRN PRN Reason: Seizures Lorazepam (Ativan) 0 mg IVPUSH Q4H PRN; Protocol PRN Reason: Withdrawal Symptoms Magnesium Sulfate (Pharmacy To Dose - Magnesium Replacement) 1 dose .XX ASDIRECTED [facility] Metoprolol Tartrate (Lopressor) 5 mg IVPUSH Q4H PRN PRN Reason: Tachycardia Last Admin: 07/18/18 12:18 Dose: 5 mg Miscellaneous Information (Remove Patch) 1 ea TRDERM Q7D [facility] Multivitamins (Thera) 1 each PO DAILY [facility] Last Admin: 07/19/18 08:46 Dose: Not Given Ondansetron HCl (Zofran) 4 mg IV Q6H PRN PRN Reason: Nausea/Vomiting Oxycodone HCl (Oxycontin) 40 mg PO BID [facility] Last Admin: 07/19/18 20:28 Dose: Not Given Pantoprazole Sodium (Protonix Iv) 40 mg IVPUSH BID [facility] Last Admin: 07/19/18 20:41 Dose: 40 mg Sumatriptan [Imitrex (] 20 Mg) 0 each INH BID PRN PRN Reason: Headache/Pain Methylphenidate 10 (Mg Tab.) 0 each PO BID [facility] Last Admin: 07/19/18 20:28 Dose: Not Given Polyethylene Glycol (Miralax) 17 gm PO DAILY PRN PRN Reason: Constipation Potassium Chloride (Pharmacy To Dose - Potassium Replacement) 1 dose .XX ASDIRECTED [facility] Quetiapine Fumarate (Seroquel) 50 mg PO BEDTIME [facility] Last Admin: 07/19/18 20:28 Dose: Not Given Saccharomyces Boulardii (Florastor) 250 mg PO TID [facility] Last Admin: 07/19/18 20:27 Dose: Not Given Senna/Docusate Sodium (Senna Plus) 1 tab PO BID PRN PRN Reason: Constipation Thiamine HCl (Vitamin B-1) 100 mg PO DAILY [facility] Last Admin: 07/19/18 08:46 Dose: Not Given Topiramate (Topamax) 25 mg PO BID [facility] Last Admin: 07/19/18 20:28 Dose: Not Given Discontinued Medications Bumetanide (Bumex) 1 mg IVPUSH ONETIME ONE Stop: 07/19/18 18:42 Last Admin: 07/19/18 19:14 Dose: 1 mg Bumetanide (Bumex) 1 mg IVPUSH ONETIME ONE Stop: 07/20/18 05:12 Last Admin: 07/20/18 04:18 Dose: 1 mg Clonidine HCl (Catapres-Tts 3) 0.3 mg TRDERM Q7D ONE Stop: 07/19/18 18:01 Last Admin: 07/19/18 18:35 Dose: 0.3 mg Enoxaparin Sodium (Lovenox) 30 mg SUBCUT Q24H [facility] Last Admin: 07/18/18 18:25 Dose: Not Given Enoxaparin Sodium (Lovenox) 30 mg SUBCUT Q24H [facility] Last Admin: 07/19/18 08:44 Dose: 30 mg Folic Acid (Folic Acid) 1 mg SUBCUT ONETIME ONE Stop: 07/18/18 09:03 Last Admin: 07/18/18 16:49 Dose: Not Given Folic Acid (Folic Acid) 1 mg SUBCUT ONETIME ONE Stop: 07/19/18 15:31 Last Admin: 07/19/18 15:44 Dose: 1 mg Haloperidol Lactate (Haldol) 10 mg IVPUSH ONETIME ONE Stop: 07/18/18 03:26 Last Admin: 07/18/18 03:36 Dose: 10 mg Haloperidol Lactate (Haldol) 10 mg IVPUSH Q6HR PRN PRN Reason: Anxiety Haloperidol Lactate (Haldol) 5 mg IVPUSH ONETIME ONE Stop: 07/18/18 09:11 Last Admin: 07/18/18 09:12 Dose: 5 mg Hydromorphone HCl (Dilaudid) 0.25 mg IVPUSH Q2H PRN PRN Reason: Pain (severe 7-10) Thiamine HCl 100 mg/ Sodium (Chloride) 51 mls @ 100 mls/hr IV ONETIME ONE Stop: 07/18/18 09:32 Last Admin: 07/18/18 16:21 Dose: Not Given Sodium Chloride (Normal Saline) 1,000 mls @ 999 mls/hr IV ONETIME [facility] Last Admin: 07/18/18 09:19 Dose: 999 mls/hr Piperacillin Sod/Tazobactam (Sod 4.5 gm/ Sodium Chloride) 100 mls @ 200 mls/hr IV ONETIME ONE Stop: 07/18/18 13:29 Last Admin: 07/18/18 13:46 Dose: 200 mls/hr Ketamine HCl (Ketalar) 50 mg IV ONETIME ONE Stop: 07/18/18 04:57 Last Admin: 07/18/18 05:01 Dose: 50 mg Ketamine HCl (Ketalar) 50 mg IV ONETIME ONE Stop: 07/18/18 07:13 Last Admin: 07/18/18 06:56 Dose: 50 mg Ketamine HCl (Ketalar) 50 mg IV ONETIME ONE Stop: 07/18/18 11:21 Last Admin: 07/18/18 11:20 Dose: 50 mg Ketamine HCl (Ketalar) 50 mg IV ONETIME ONE Stop: 07/18/18 11:23 Last Admin: 07/18/18 11:22 Dose: 50 mg Lorazepam (Ativan) 2 mg IVPUSH ONETIME ONE Stop: 07/18/18 03:25 Last Admin: 07/18/18 03:38 Dose: 2 mg Lorazepam (Ativan) Confirm Administered Dose 2 mg .ROUTE .STK-MED ONE Stop: 07/18/18 03:27 Last Admin: 07/18/18 03:41 Dose: Not Given Lorazepam (Ativan) 2 mg IVPUSH ONETIME ONE Stop: 07/18/18 04:10 Last Admin: 07/18/18 04:12 Dose: 2 mg Lorazepam (Ativan) 2 mg IVPUSH ONETIME ONE Stop: 07/18/18 04:58 Last Admin: 07/18/18 04:45 Dose: 2 mg Lorazepam (Ativan) 2 mg IVPUSH ONETIME ONE Stop: 07/18/18 07:45 Last Admin: 07/18/18 07:49 Dose: 2 mg Lorazepam (Ativan) Confirm Administered Dose 2 mg .ROUTE .STK-MED ONE Stop: 07/18/18 07:48 Last Admin: 07/18/18 10:08 Dose: Not Given Lorazepam (Ativan) Confirm Administered Dose 2 mg .ROUTE .STK-MED ONE Stop: 07/18/18 09:57 Last Admin: 07/18/18 10:07 Dose: Not Given Lorazepam (Ativan) Confirm Administered Dose 2 mg .ROUTE .STK-MED ONE Stop: 07/18/18 10:52 Last Admin: 07/18/18 16:22 Dose: Not Given Lorazepam (Ativan) 4 mg IVPUSH ONETIME ONE Stop: 07/18/18 10:52 Last Admin: 07/18/18 10:51 Dose: 4 mg Lorazepam (Ativan) 5 mg IVPUSH ONETIME ONE Stop: 07/18/18 10:57 Last Admin: 07/18/18 10:56 Dose: 5 mg Methylphenidate HCl (Ritalin) 20 mg PO BID [facility] Last Admin: 07/18/18 16:20 Dose: Not Given Midazolam HCl (Versed 1 Mg/Ml) 5 mg IVPUSH ONETIME ONE Stop: 07/18/18 12:23 Last Admin: 07/18/18 11:45 Dose: 5 mg Midazolam HCl (Versed 1 Mg/Ml) Confirm Administered Dose 2 mg .ROUTE .STK-MED ONE Stop: 07/18/18 12:24 Last Admin: 07/18/18 12:25 Dose: 2 mg Midazolam HCl (Versed 1 Mg/Ml) Confirm Administered Dose 4 mg .ROUTE .STK-MED ONE Stop: 07/18/18 12:27 Last Admin: 07/18/18 12:29 Dose: 4 mg Morphine Sulfate (Morphine) 2 mg IVPUSH Q4H [facility] Last Admin: 07/19/18 18:35 Dose: Not Given Pantoprazole Sodium (Protonix Iv) 40 mg IV Q12HR [facility] Stop: 07/18/18 21:01 Last Admin: 07/18/18 20:55 Dose: 40 mg Potassium Chloride (Klor-Con M20) 40 meq PO Q4H [facility] Stop: 07/18/18 14:01 Last Admin: 07/18/18 16:17 Dose: Not Given Rocuronium [place] (Zemuron) 50 mg IVPUSH ONETIME ONE Stop: 07/18/18 12:43 Last Admin: 07/18/18 11:46 Dose: 50 mg Rocuronium [place] (Zemuron) 50 mg IVPUSH ONETIME ONE Stop: 07/18/18 11:46 Last Admin: 07/18/18 11:46 Dose: 50 mg Thiamine HCl (Vitamin B-1) 100 mg IVPUSH ONETIME ONE Stop: 07/18/18 09:31 Last Admin: 07/18/18 16:49 Dose: Not Given Thiamine HCl (Vitamin B-1) 100 mg IVPUSH ONETIME ONE Stop: 07/19/18 15:31 Last Admin: 07/19/18 15:29 Dose: 100 mg - Exam General: Sedated HEENT: Pupils Equal, Pupils Reactive Neck: Supple Lungs: Decreased Breath Sounds, Other (mecahnical breath sounds) Cardiovascular: Regular Rate, Regular Rhythm, Bradycardia GI/Abdominal Exam: Normal Bowel Sounds, Soft, Non-Tender, No Organomegaly, No Distention, No Abnormal Bruit, Other (Obese) (Male) Exam: Other (indwelling folecy catheter) Back Exam: Other (deferred) Extremities: Normal Inspection, No Pedal Edema, Normal Capillary Refill Peripheral Pulses: 2+: Dorsalis Pedis (L), Dorsalis Pedis (R) Skin: Warm, Dry, Intact Neurological: Other (deferred) Psy/Mental Status: Other (sedated ) Physical Findings Comments:: Physical exam is limited. He is currently sedated and intubated on mechanical vent. - Problem List Review Problem List Initiated/Reviewed/Updated: Yes - My Orders Last 24 Hours: My Active Orders 07/19/18 09:00 Famotidine [Pepcid] 20 mg PO Q12H Folic Acid 1 mg PO DAILY Multivitamins,Therapeutic [Thera] 1 each PO DAILY Thiamine [Vitamin B-1] 100 mg PO DAILY 07/19/18 18:39 Chest 1V Frontal [CR] Routine 07/19/18 18:45 HYDROmorphone [Dilaudid] 2 mg IVPUSH Q4H 07/19/18 21:00 Pantoprazole [ProTONIX IV] 40 mg IVPUSH BID 07/20/18 07:07 ABG [BLOOD GAS ARTERIAL] [BG] Urgent 07/20/18 09:00 Enoxaparin [Lovenox] 40 mg SUBCUT Q24H 07/21/18 05:11 BASIC METABOLIC PANEL,BMP [CHEM] AM MAGNESIUM [CHEM] AM 07/22/18 05:11 BASIC METABOLIC PANEL,BMP [CHEM] AM MAGNESIUM [CHEM] AM 07/23/18 05:11 BASIC METABOLIC PANEL,BMP [CHEM] AM MAGNESIUM [CHEM] AM 07/26/18 18:00 Remove Patch 1 ea TRDERM Q7D - Plan Plan:: Assessment/Plan: Acute: Hypermetabolic Encephalopathy on Mechanical Vent - 2/2 Unknown drug(s) he possibly he took - UDS pos for benzo and Oxy - CXR essentially shows no acute abnormal findings - Very difficult sedation; required multiple sedatives and considerable amount of paralytics during the intubation process - He is now comfortably sedated on mechanical ventilator - Head CT scan showed no acute intra-cranial abnormality - ABG this AM shows pH of 7.37, pCO2 of 39.3, pO2 of 80, HCO3 of 22.1 and O2 Sat of 95.1 - VT setting AC 500, 5PEEP, RR14 and FiO2 of 30%; Will keep Vet setting the same and plan for extubation in AM CKD Stage 2-3 - BUN 23 and CR 1.4 - IVF at 125cc/hr - UA spec gravity shows > or = 1.030 - Huang catheter to monitor output and Strict Is/Os ETOH Abuse w/ Possible Withdrawal Symptoms - Carries a hx/o Substance Abuse - RON 0.09 - He was at [facility] having a good time with co-workers - CIWA Score: very high - Ativan/Librium/Clonidine/Topamax - Hydralazine and IVP BB for HR/BP control - Ativan for Abortive Seizure and Withdrawal Symptoms E-lytes Abnormality - Hypokalemia and Hypomagnesemia - K 3.2 and Mg 1.7 - 2/2 diuresis and npo status - Replete and monitor Resolved: S/p Severe Agitation/Restlessness - Unknown or Unclear etiology - Suspect he took LSD per - He carries a hx/o heavy substance abuse per brother - RON level is 0.09 - Very difficult to sedate and it took considerable amount of staff to keep stay still in bed Chronic: Impaired Vision HTN PAT CKD Stage 2-3 Back Pain Migraines Peripheral Neuropathy Hyperthyroidism GERD Obesity Class I Plan: He is sedated and comfortable. He is hemodynamically stable. Routine AM Labs Re-start 1:1 care once off vent MVI, Folic Acid and Thiamine Ativan for Abortive Seizure and Withdrawal Symptoms PRN meds for Withdrawal Symptoms DVT and GI PPx: Lovenox and H2B Aspiration/Seizure Precautions SW/CM d/c planning SA/Psych consult once off ventilator Code Status: 1 Plan for extubation soon
--- NOTE | 2018-07-20 07:11 | CR ---
Chest: Frontal view of the chest was obtained. Comparison: Prior chest x-ray performed earlier the same day (7:33 AM). Tip of endotracheal tube lies at the level of the clavicles. Nasogastric tube shows the tip to be within the stomach. Lungs show no acute parenchymal change. Heart size and mediastinum are normal. Bony structures are unremarkable. Impression: 1. Tip of endotracheal tube at the level of the clavicles. This could be advanced by 1 or 2 cm for optimal position. 2. Satisfactory position of nasogastric tube. 3. Nothing acute is otherwise seen. Diagnostic code #3 I agree with preliminary report from ad, finalized on 07/19/18, 8:10 PM Central Time
[2018-07-20] MEDS ORDERED: HYDROmorphone 1 MG/ML Syringe IVPUSH PRN (07:59)
[2018-07-20] MEDS: LORazepam 2 MG/ML SDV IVPUSH PRN ×8 (08:36→15:47)
--- NOTE | 2018-07-20 08:53 | CR ---
Chest: Frontal view of the chest was obtained utilizing portable technique. Comparison: Prior chest x-ray of 07/19/18. Endotracheal tube and nasogastric tube have been removed. Heart size and mediastinum are normal. Lungs are clear with no acute parenchymal change. Bony structures are grossly intact. Impression: 1. Removal of nasogastric tube and endotracheal tube. 2. Nothing acute is appreciated on frontal chest x-ray. Diagnostic code #2
[2018-07-20] MEDS: Lisinopril 20 MG Tab PO SCH ×2 (10:45→18:42)
[2018-07-20] MEDS: Gabapentin 600 MG Tab PO SCH ×4 (10:45→22:24)
[2018-07-20] MEDS: Folic Acid 1 MG Tab PO SCH ×2 (10:45→18:42)
[2018-07-20] MEDS: oxyCODONE ER 20 MG TAB.ER PO SCH ×3 (10:45→22:13)
[2018-07-20] MEDS: Famotidine 20 MG Tab PO SCH ×2 (10:45→22:14)
[2018-07-20] MEDS: Saccharomyces Boulardii (Probiotic) 250 MG Cap PO SCH ×3 (10:45→22:23)
[2018-07-20] MEDS: Multivitamins,Therapeutic Tab PO SCH ×2 (10:46→18:42)
[2018-07-20] MEDS: Topiramate 25 MG Tab PO SCH ×3 (10:46→22:14)
[2018-07-20] MEDS: Thiamine 100 MG Tab PO SCH (10:46)
[2018-07-20] MEDS: METHYLPHENIDATE 10 MG PO SCH ×2 (10:46→22:39)
[2018-07-20] MEDS: Pantoprazole 40 MG Vial IVPUSH SCH ×2 (10:54→22:05)
[2018-07-20] MEDS: Enoxaparin 40 MG/0.4 ML Syringe SUBCUT SCH (10:54)
[2018-07-20] MEDS ORDERED: Thiamine 200 MG/2 ML MDV IVPUSH ONE (11:30)
[2018-07-20] MEDS: Magnesium Sulfate/Water 2 GM in Premix Bag 1 BAG IV ONE (11:34)
[2018-07-20] MEDS: Potassium Chloride 10 MEQ in Premix Bag 1 BAG IV SCH ×4 (11:36→15:15)
[2018-07-20] MEDS ORDERED: QUEtiapine 25 MG Tab PO STA (13:46)
[2018-07-20] MEDS ORDERED: Haloperidol Lactate 5 MG/ML SDV IM ONE ×2 (14:58→16:13)
[2018-07-20] MEDS ORDERED: diphenhydrAMINE 50 MG Cap PO ONE (16:14)
[2018-07-20] MEDS ORDERED: LORazepam 2 MG/ML SDV IVPUSH ONE (16:15)
[2018-07-20] MEDS ORDERED: Haloperidol Lactate 5 MG/ML SDV IVPUSH PRN (20:48)
[2018-07-20] MEDS: QUEtiapine 25 MG Tab PO SCH (22:14)
[2018-07-21] MEDS: Sodium Chloride 0.9% 1,000 ML IV SCH (05:27)
[2018-07-21] MEDS ORDERED: Thiamine 100 MG Tab PO SCH (09:00)
[2018-07-21] MEDS: Saccharomyces Boulardii (Probiotic) 250 MG Cap PO SCH (09:35)
[2018-07-21] MEDS: Gabapentin 600 MG Tab PO SCH (09:36)
[2018-07-21] MEDS: oxyCODONE ER 20 MG TAB.ER PO SCH (09:36)
[2018-07-21] MEDS: Enoxaparin 40 MG/0.4 ML Syringe SUBCUT SCH (09:36)
[2018-07-21] MEDS: Folic Acid 1 MG Tab PO SCH (09:36)
[2018-07-21] MEDS: Topiramate 25 MG Tab PO SCH (09:37)
[2018-07-21] MEDS: Famotidine 20 MG Tab PO SCH (09:37)
[2018-07-21] MEDS: Multivitamins,Therapeutic Tab PO SCH (09:37)
[2018-07-21] MEDS: Pantoprazole 40 MG Vial IVPUSH SCH (09:43)
[2018-07-21] MEDS: Lisinopril 20 MG Tab PO SCH (09:46)
[2018-07-21] MEDS: METHYLPHENIDATE 10 MG PO SCH (10:48)
[2018-07-21] MEDS ORDERED: Potassium Chloride 20 MEQ Tab.ER PO SCH (11:15)
--- NOTE | 2018-07-21 11:47 | PCM.PN ---
- General Info Date of Service: 07/21/18 Admission Dx/Problem (Free Text): Admission Diagnosis/Problem Admission Diagnosis/Problem Overdose of analgesic Subjective Update: Follow Up Functional Status: Reports: Pain Controlled, Tolerating Diet, Ambulating, Urinating. Denies: New Symptoms - Review of Systems General: Denies: Fever, Chills HEENT: Reports: No Symptoms Pulmonary: Denies: Shortness of Breath Cardiovascular: Denies: Chest Pain, Dyspnea on Exertion, Orthopnea, Lightheadedness Gastrointestinal: Denies: Abdominal Pain, Nausea, Vomiting Genitourinary: Reports: No Symptoms Musculoskeletal: Reports: No Symptoms Skin: Denies: Cyanosis, Mottled, Pallor, Diaphoresis, Bruising, Rash Neurological: Denies: Confusion, Weakness, Gait Disturbance Psychiatric: Denies: Depression, Anxiety, Agitation Systems Review Comment:: No overnight or acute issues. He slept throughout the night. He is totally a different person this morning and wants to have his florence catheter off. His K is mildly low at 3.3. He wants to leave today. - Patient Data Vitals - Most Recent: Last Vital Signs Temp 36.2 C 07/21/18 08:00 Pulse 83 07/20/18 19:08 Resp 32 H 07/21/18 08:00 BP 119/56 L 07/21/18 09:46 Pulse Ox 100 07/21/18 08:00 Weight - Most Recent: 127.777 kg I&O - Last 24 Hours: Intake & Output 07/20/18 07/21/18 07/21/18 22:59 06:59 14:59 Intake Total 1000 567 Output Total 1260 195 60 Balance -260 372 -60 Lab Results Last 24 Hours: Laboratory Results - last 24 hr 07/21/18 Range/Units 04:27 Sodium 144 (136-145) mEq/L Potassium 3.3 L (3.5-5.1) mEq/L Chloride 108 H (98-107) mEq/L Carbon Dioxide 24 (21-32) mEq/L Anion Gap 15.3 H (5-15) BUN 14 (7-18) mg/dL Creatinine 1.0 (0.7-1.3) mg/dL Est Cr Clr Drug Dosing 103.68 mL/min Estimated GFR (MDRD) > 60 (>60) mL/min BUN/Creatinine Ratio 14.0 (14-18) Glucose 81 (74-106) mg/dL Calcium 9.2 (8.5-10.1) mg/dL Magnesium 1.8 (1.8-2.4) mg/dl Med Orders - Current: Current Medications Acetaminophen (Tylenol) 650 mg PO Q4H PRN PRN Reason: Pain (Mild 1-3)/fever Hydrocodone Bitart/Acetaminophen (Keldron 325-5 Mg) 1 tab PO Q4H PRN PRN Reason: Pain (moderate 4-6) Albuterol/Ipratropium (Duoneb 3.0-0.5 Mg/3 Ml) 3 ml NEB Q4H PRN PRN Reason: Shortness Of Breath/wheezing Bisacodyl (Dulcolax) 5 mg PO DAILY PRN PRN Reason: Constipation Chlordiazepoxide HCl (Librium) 25 mg PO Q8H PRN PRN Reason: Withdrawal Symptoms Last Admin: 07/20/18 15:47 Dose: 25 mg Clonidine HCl (Catapres) 0.1 mg PO Q4H PRN PRN Reason: Agitation Last Admin: 07/20/18 18:51 Dose: 0.1 mg Docusate Sodium (Colace) 100 mg PO BID PRN PRN Reason: Constipation Enoxaparin Sodium (Lovenox) 40 mg SUBCUT Q24H [facility] Last Admin: 07/21/18 09:36 Dose: 40 mg Famotidine (Pepcid) 20 mg PO Q12H [facility] Last Admin: 07/21/18 09:37 Dose: 20 mg Gabapentin (Neurontin) 1,200 mg PO TID [facility] Last Admin: 07/21/18 09:36 Dose: 1,200 mg Haloperidol Lactate (Haldol) 10 mg IVPUSH Q6H PRN PRN Reason: restlessness Hydralazine HCl (Apresoline) 20 mg IVPUSH Q4H PRN PRN Reason: Hypertension Last Admin: 07/19/18 17:08 Dose: 20 mg Hydromorphone HCl (Dilaudid) 2 mg IVPUSH Q4H PRN PRN Reason: Pain Promethazine HCl 6.25 mg/ (Sodium Chloride) 50.25 mls @ 100 mls/hr IV Q6H PRN PRN Reason: Nausea/Vomiting Midazolam HCl 50 mg/ Sodium (Chloride) 50 mls @ 0.5 mls/hr IV TITRATE RADHA; Protocol Last Titration: 07/20/18 07:20 Dose: 0 mg/hr, 0 mls/hr Propofol (Diprivan 100 Ml) 100 mls @ 22.853 mls/hr IV TITRATE RADHA; Protocol Last Titration: 07/20/18 07:20 Dose: 0 mcg/kg/min, 0 mls/hr Sodium Chloride (Normal Saline) 1,000 mls @ 50 mls/hr IV ASDIRECTED RADHA Last Admin: 07/21/18 05:27 Dose: 50 mls/hr Lisinopril (Prinivil) 20 mg PO DAILY [facility] Last Admin: 07/21/18 09:46 Dose: 20 mg Lorazepam (Ativan) 2 mg IVPUSH Q30M PRN PRN Reason: Anxiety Last Admin: 07/20/18 15:08 Dose: 2 mg Lorazepam (Ativan) 2 mg IVPUSH Q4H PRN PRN Reason: Seizures Lorazepam (Ativan) 0 mg IVPUSH Q4H PRN; Protocol PRN Reason: Withdrawal Symptoms Last Admin: 07/20/18 15:47 Dose: 2 mg Magnesium Sulfate (Pharmacy To Dose - Magnesium Replacement) 1 dose .XX ASDIRECTED [facility] Metoprolol Tartrate (Lopressor) 5 mg IVPUSH Q4H PRN PRN Reason: Tachycardia Last Admin: 07/18/18 12:18 Dose: 5 mg Miscellaneous Information (Remove Patch) 1 ea TRDERM Q7D [facility] Multivitamins (Thera) 1 each PO DAILY [facility] Last Admin: 07/21/18 09:37 Dose: 1 each Ondansetron HCl (Zofran) 4 mg IV Q6H PRN PRN Reason: Nausea/Vomiting Oxycodone HCl (Oxycontin) 40 mg PO BID [facility] Last Admin: 07/21/18 09:36 Dose: 40 mg Pantoprazole Sodium (Protonix Iv) 40 mg IVPUSH BID [facility] Last Admin: 07/21/18 09:43 Dose: 40 mg Sumatriptan [Imitrex (] 20 Mg) 0 each INH BID PRN PRN Reason: Headache/Pain Methylphenidate 10 (Mg Tab.) 0 each PO BID [facility] Last Admin: 07/21/18 10:48 Dose: Not Given Polyethylene Glycol (Miralax) 17 gm PO DAILY PRN PRN Reason: Constipation Potassium Chloride (Pharmacy To Dose - Potassium Replacement) 1 dose .XX ASDIRECTED [facility] Potassium Chloride (Klor-Con M20) 40 meq PO Q4H [facility] Stop: 07/21/18 15:16 Last Admin: 07/21/18 11:35 Dose: 40 meq Quetiapine Fumarate (Seroquel) 50 mg PO BEDTIME [facility] Last Admin: 07/20/18 22:14 Dose: 50 mg Saccharomyces Boulardii (Florastor) 250 mg PO BID [facility] Last Admin: 07/21/18 09:35 Dose: 250 mg Senna/Docusate Sodium (Senna Plus) 1 tab PO BID PRN PRN Reason: Constipation Thiamine HCl (Vitamin B-1) 100 mg PO DAILY [facility] Last Admin: 07/21/18 09:41 Dose: 100 mg Topiramate (Topamax) 25 mg PO BID [facility] Last Admin: 07/21/18 09:37 Dose: 25 mg Discontinued Medications Bumetanide (Bumex) 1 mg IVPUSH ONETIME ONE Stop: 07/19/18 18:42 Last Admin: 07/19/18 19:14 Dose: 1 mg Bumetanide (Bumex) 1 mg IVPUSH ONETIME ONE Stop: 07/20/18 05:12 Last Admin: 07/20/18 04:18 Dose: 1 mg Clonidine HCl (Catapres-Tts 3) 0.3 mg TRDERM Q7D ONE Stop: 07/19/18 18:01 Last Admin: 07/19/18 18:35 Dose: 0.3 mg Diphenhydramine HCl (Benadryl) 50 mg PO ONETIME ONE Stop: 07/20/18 16:15 Last Admin: 07/20/18 19:11 Dose: Not Given Enoxaparin Sodium (Lovenox) 30 mg SUBCUT Q24H [facility] Last Admin: 07/18/18 18:25 Dose: Not Given Enoxaparin Sodium (Lovenox) 30 mg SUBCUT Q24H [facility] Last Admin: 07/19/18 08:44 Dose: 30 mg Folic Acid (Folic Acid) 1 mg SUBCUT ONETIME ONE Stop: 07/18/18 09:03 Last Admin: 07/18/18 16:49 Dose: Not Given Folic Acid (Folic Acid) 1 mg PO DAILY [facility] Stop: 07/21/18 09:01 Last Admin: 07/21/18 09:36 Dose: 1 mg Folic Acid (Folic Acid) 1 mg SUBCUT ONETIME ONE Stop: 07/19/18 15:31 Last Admin: 07/19/18 15:44 Dose: 1 mg Haloperidol Lactate (Haldol) 10 mg IVPUSH ONETIME ONE Stop: 07/18/18 03:26 Last Admin: 07/18/18 03:36 Dose: 10 mg Haloperidol Lactate (Haldol) 10 mg IVPUSH Q6HR PRN PRN Reason: Anxiety Haloperidol Lactate (Haldol) 10 mg IVPUSH Q6H PRN PRN Reason: Agitation Last Admin: 07/18/18 10:26 Dose: 10 mg Haloperidol Lactate (Haldol) 5 mg IVPUSH ONETIME ONE Stop: 07/18/18 09:11 Last Admin: 07/18/18 09:12 Dose: 5 mg Haloperidol Lactate (Haldol) 10 mg IM ONETIME ONE Stop: 07/20/18 14:59 Last Admin: 07/20/18 15:12 Dose: 10 mg Haloperidol Lactate (Haldol) 5 mg IM ONETIME ONE Stop: 07/20/18 16:14 Last Admin: 07/20/18 18:46 Dose: 5 mg Hydromorphone HCl (Dilaudid) 0.25 mg IVPUSH Q2H PRN PRN Reason: Pain (severe 7-10) Hydromorphone HCl (Dilaudid) 2 mg IVPUSH Q4H [facility] Last Admin: 07/20/18 21:51 Dose: Not Given Sodium Chloride (Normal Saline) 1,000 mls @ 150 mls/hr IV ASDIRECTED [facility] Last Admin: 07/20/18 06:10 Dose: 50 mls/hr Thiamine HCl 100 mg/ Sodium (Chloride) 51 mls @ 100 mls/hr IV ONETIME ONE Stop: 07/18/18 09:32 Last Admin: 07/18/18 16:21 Dose: Not Given Sodium Chloride (Normal Saline) 1,000 mls @ 999 mls/hr IV ONETIME [facility] Last Admin: 07/18/18 09:19 Dose: 999 mls/hr Piperacillin Sod/Tazobactam (Sod 4.5 gm/ Sodium Chloride) 100 mls @ 25 mls/hr IV Q8H [facility] Last Admin: 07/20/18 04:18 Dose: 25 mls/hr Piperacillin Sod/Tazobactam (Sod 4.5 gm/ Sodium Chloride) 100 mls @ 200 mls/hr IV ONETIME ONE Stop: 07/18/18 13:29 Last Admin: 07/18/18 13:46 Dose: 200 mls/hr Magnesium Sulfate 2 gm/ Premix 50 mls @ 25 mls/hr IV ONETIME ONE Stop: 07/20/18 12:59 Last Admin: 07/20/18 11:34 Dose: 25 mls/hr Potassium Chloride 10 meq/ (Premix) 100 mls @ 100 mls/hr IV Q1H [facility] Stop: 07/20/18 15:59 Last Admin: 07/20/18 15:15 Dose: 100 mls/hr Ketamine HCl (Ketalar) 50 mg IV ONETIME ONE Stop: 07/18/18 04:57 Last Admin: 07/18/18 05:01 Dose: 50 mg Ketamine HCl (Ketalar) 50 mg IV ONETIME ONE Stop: 07/18/18 07:13 Last Admin: 07/18/18 06:56 Dose: 50 mg Ketamine HCl (Ketalar) 50 mg IV ONETIME ONE Stop: 07/18/18 11:21 Last Admin: 07/18/18 11:20 Dose: 50 mg Ketamine HCl (Ketalar) 50 mg IV ONETIME ONE Stop: 07/18/18 11:23 Last Admin: 07/18/18 11:22 Dose: 50 mg Lorazepam (Ativan) 2 mg IVPUSH ONETIME ONE Stop: 07/18/18 03:25 Last Admin: 07/18/18 03:38 Dose: 2 mg Lorazepam (Ativan) Confirm Administered Dose 2 mg .ROUTE .STK-MED ONE Stop: 07/18/18 03:27 Last Admin: 07/18/18 03:41 Dose: Not Given Lorazepam (Ativan) 2 mg IVPUSH ONETIME ONE Stop: 07/18/18 04:10 Last Admin: 07/18/18 04:12 Dose: 2 mg Lorazepam (Ativan) 2 mg IVPUSH ONETIME ONE Stop: 07/18/18 04:58 Last Admin: 07/18/18 04:45 Dose: 2 mg Lorazepam (Ativan) 2 mg IVPUSH ONETIME ONE Stop: 07/18/18 07:45 Last Admin: 07/18/18 07:49 Dose: 2 mg Lorazepam (Ativan) Confirm Administered Dose 2 mg .ROUTE .STK-MED ONE Stop: 07/18/18 07:48 Last Admin: 07/18/18 10:08 Dose: Not Given Lorazepam (Ativan) Confirm Administered Dose 2 mg .ROUTE .STK-MED ONE Stop: 07/18/18 09:57 Last Admin: 07/18/18 10:07 Dose: Not Given Lorazepam (Ativan) Confirm Administered Dose 2 mg .ROUTE .STK-MED ONE Stop: 07/18/18 10:52 Last Admin: 07/18/18 16:22 Dose: Not Given Lorazepam (Ativan) 4 mg IVPUSH ONETIME ONE Stop: 07/18/18 10:52 Last Admin: 07/18/18 10:51 Dose: 4 mg Lorazepam (Ativan) 5 mg IVPUSH ONETIME ONE Stop: 07/18/18 10:57 Last Admin: 07/18/18 10:56 Dose: 5 mg Lorazepam (Ativan) 2 mg IVPUSH ONETIME ONE Stop: 07/20/18 16:16 Last Admin: 07/20/18 18:46 Dose: 2 mg Methylphenidate HCl (Ritalin) 20 mg PO BID [facility] Last Admin: 07/18/18 16:20 Dose: Not Given Midazolam HCl (Versed 1 Mg/Ml) 5 mg IVPUSH ONETIME ONE Stop: 07/18/18 12:23 Last Admin: 07/18/18 11:45 Dose: 5 mg Midazolam HCl (Versed 1 Mg/Ml) Confirm Administered Dose 2 mg .ROUTE .STK-MED ONE Stop: 07/18/18 12:24 Last Admin: 07/18/18 12:25 Dose: 2 mg Midazolam HCl (Versed 1 Mg/Ml) Confirm Administered Dose 4 mg .ROUTE .STK-MED ONE Stop: 07/18/18 12:27 Last Admin: 07/18/18 12:29 Dose: 4 mg Morphine Sulfate (Morphine) 2 mg IVPUSH Q4H [facility] Last Admin: 07/19/18 18:35 Dose: Not Given Pantoprazole Sodium (Protonix Iv) 40 mg IV Q12HR [facility] Stop: 07/18/18 21:01 Last Admin: 07/18/18 20:55 Dose: 40 mg Potassium Chloride (Klor-Con M20) 40 meq PO Q4H [facility] Stop: 07/18/18 14:01 Last Admin: 07/18/18 16:17 Dose: Not Given Quetiapine Fumarate (Seroquel) 50 mg PO NOW [facility] Stop: 07/20/18 13:47 Last Admin: 07/20/18 13:50 Dose: 50 mg Rocuronium [place] (Zemuron) 50 mg IVPUSH ONETIME ONE Stop: 07/18/18 12:43 Last Admin: 07/18/18 11:46 Dose: 50 mg Rocuronium [place] (Zemuron) 50 mg IVPUSH ONETIME ONE Stop: 07/18/18 11:46 Last Admin: 07/18/18 11:46 Dose: 50 mg Saccharomyces Boulardii (Florastor) 250 mg PO TID [facility] Last Admin: 07/20/18 10:45 Dose: Not Given Thiamine HCl (Vitamin B-1) 100 mg PO DAILY [facility] Last Admin: 07/20/18 10:46 Dose: Not Given Thiamine HCl (Vitamin B-1) 100 mg IVPUSH ONETIME ONE Stop: 07/18/18 09:31 Last Admin: 07/18/18 16:49 Dose: Not Given Thiamine HCl (Vitamin B-1) 100 mg IVPUSH ONETIME ONE Stop: 07/19/18 15:31 Last Admin: 07/19/18 15:29 Dose: 100 mg Thiamine HCl (Vitamin B-1) 100 mg IVPUSH ONETIME ONE Stop: 07/20/18 11:31 Last Admin: 07/20/18 12:03 Dose: 100 mg - Exam General: Alert, Cooperative, No Acute Distress HEENT: Pupils Equal, Pupils Reactive, EOMI, Mucous Membr. Moist/Regina, Other ( buldging eyes) Neck: Supple Lungs: Clear to Auscultation, Normal Respiratory Effort Cardiovascular: Regular Rate, Regular Rhythm GI/Abdominal Exam: Normal Bowel Sounds, Soft, Non-Tender, No Organomegaly, No Distention, No Abnormal Bruit (Male) Exam: Deferred Back Exam: Normal Inspection, Decreased Range of Motion Extremities: Normal Inspection, Normal Range of Motion, Non-Tender, No Pedal Edema, Normal Capillary Refill Peripheral Pulses: 2+: Dorsalis Pedis (L), Dorsalis Pedis (R) Skin: Warm, Dry, Intact Neurological: No New Focal Deficit Psy/Mental Status: Alert, Normal Affect, Normal Mood. No: Anxious, Depressed, Suicidal Ideation, Homicidal Ideation, Hallucinations, Withdrawal Symptoms - Problem List & Annotations (1) Substance abuse withdrawal, with delirium SNOMED Code(s): 857837474, 652866998 Code(s): F19.231 - OTH PSYCHOACTIVE SUBSTANCE DEPENDENCE W WITHDRAWAL DELIRIUM Status: Resolved Current Visit: Yes (2) Alcohol abuse SNOMED Code(s): 59574920 Code(s): F10.10 - ALCOHOL ABUSE, UNCOMPLICATED Status: Resolved Current Visit: Yes - Problem List Review Problem List Initiated/Reviewed/Updated: Yes - My Orders Last 24 Hours: My Active Orders 07/20/18 12:00 Sodium Chloride 0.9% [Normal Saline] 1,000 ml IV ASDIRECTED 07/20/18 13:27 Modified Wong Swallow Screen [Nursing Bedside Swallow Screen] [RC] ASDIRECTED 07/20/18 20:48 Haloperidol Lactate [Haldol] 10 mg IVPUSH Q6H PRN 07/20/18 21:00 Saccharomyces Boulardii [Florastor] 250 mg PO BID 07/21/18 09:00 Thiamine [Vitamin B-1] 100 mg PO DAILY 07/21/18 09:42 Admission Status [Patient Status] [ADT] Routine 07/21/18 11:15 Potassium Chloride [Klor-Con M20] 40 meq PO Q4H 07/21/18 Lunch Regular Diet [DIET] 07/22/18 05:11 BASIC METABOLIC PANEL,BMP [CHEM] AM MAGNESIUM [CHEM] AM 07/23/18 05:11 BASIC METABOLIC PANEL,BMP [CHEM] AM MAGNESIUM [CHEM] AM 07/26/18 18:00 Remove Patch 1 ea TRDERM Q7D - Plan Plan:: Assessment/Plan: 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, At baseline - BUN 23 and CR 1.4 - IVF at 125cc/hr - UA spec gravity shows > or = 1.030 - Florence catheter to monitor output and Strict Is/Os E-lytes Abnormality - Hypokalemia and S/p Hypomagnesemia - K 3.2--> 3.3 and Mg 1.7--> 1.8, Resolved - 2/2 diuresis and npo status - Replete and monitor Resolved: S/p Severe Agitation/Restlessness - Unknown or Unclear etiology - Suspect he took LSD per - He carries a hx/o heavy substance abuse per brother - RON level is 0.09 - Very difficult to sedate and it took considerable amount of staff to keep stay still in bed S/p Hypermetabolic Encephalopathy on Mechanical Vent - 2/2 Unknown drug(s) he possibly he took - UDS pos for benzo and Oxy - CXR essentially shows no acute abnormal findings - Very difficult sedation; required multiple sedatives and considerable amount of paralytics during the intubation process - He is now comfortably sedated on mechanical ventilator - Head CT scan showed no acute intra-cranial abnormality - ABG this AM shows pH of 7.37, pCO2 of 39.3, pO2 of 80, HCO3 of 22.1 and O2 Sat of 95.1 - VT setting AC 500, 5PEEP, RR14 and FiO2 of 30%; Will keep Vet setting the same and plan for extubation in AM S/p ETOH Abuse w/ Possible Withdrawal Symptoms - Carries a hx/o Substance Abuse - ORN 0.09 - He was at [facility] having a good time with co-workers - CIWA Score: very high - Ativan/Librium/Clonidine/Topamax - Hydralazine and IVP BB for HR/BP control - Ativan for Abortive Seizure and Withdrawal Symptoms Chronic: Impaired Vision HTN PAT CKD Stage 2-3 Back Pain Migraines Peripheral Neuropathy Hyperthyroidism GERD Obesity Class I Plan: He is much better clinically. Talking and engaging. Routine AM Labs Resume Home Meds MVI, Folic Acid and Thiamine Ativan for Abortive Seizure and Withdrawal Symptoms DVT and GI PPx: Lovenox and H2B Refused SA's consult SW/CM d/c planning Code Status: 1 Possible discharge in AM pending Dr. Chawla's recommendations Patient was advised he was not quite ready and could use one more day. Offered I will discharge him as early as 6AM in the morning. His agreed but he was contemplating after I left his room.
[2018-07-21 13:58] VITALS: BP 155/99
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
== END 2018-07-21 15:00 | disposition left against medical advice (07) | DRG 917 ==
LOC: JD.ED 03:20 → JD.ICU 06:44
PROVIDERS: ADMIT Internal Medicine; ATTEND Internal Medicine
PROC: 0BH17EZ Insertion of Endotracheal Airway into Trachea, Via Natural or Artificial Opening (ICD-10-PCS; principal; 2018-07-18)
PROC: 5A1945Z Respiratory Ventilation, 24-96 Consecutive Hours (ICD-10-PCS; 2018-07-18)
PROC: 00JU3ZZ Inspection of Spinal Canal, Percutaneous Approach (ICD-10-PCS; 2018-07-18)
DX: T40.8X1A Poisoning by lysergide [LSD], accidental (unintentional), initial encounter (principal); G92 Toxic encephalopathy; F10.239 Alcohol dependence with withdrawal, unspecified; F10.229 Alcohol dependence with intoxication, unspecified; H54.7 Unspecified visual loss; G47.33 Obstructive sleep apnea (adult) (pediatric); I12.9 Hypertensive chronic kidney disease with stage 1 through stage 4 chronic kidney disease, or unspecified chronic kidney disease; N18.3 Chronic kidney disease, stage 3 (moderate); M54.9 Dorsalgia, unspecified; G43.909 Migraine, unspecified, not intractable, without status migrainosus; G62.9 Polyneuropathy, unspecified; E05.90 Thyrotoxicosis, unspecified without thyrotoxic crisis or storm; K21.9 Gastro-esophageal reflux disease without esophagitis; G89.29 Other chronic pain; F90.9 Attention-deficit hyperactivity disorder, unspecified type; E87.6 Hypokalemia; E83.42 Hypomagnesemia; E66.9 Obesity, unspecified; Z68.34 Body mass index [BMI] 34.0-34.9, adult; Z79.899 Other long term (current) drug therapy; Z88.5 Allergy status to narcotic agent; Z91.030 Bee allergy status; Z86.14 Personal history of Methicillin resistant Staphylococcus aureus infection; Z96.659 Presence of unspecified artificial knee joint
CPT/HCPCS: 36415; 36600; 51702; 70450; 70450-26; 71045; 71045-26; 80048; 80053; 80306; 81001; 82803; 83735; 84439; 84443; 85007; 85025; 85027; 93005; 94002; 94003; 96361; 96374; 96375; 96376; 99285; 99285-25; A9270-GY; C9113; G0480; J0360; J1170; J1630; J1650; J2060; J2250; J2543; J2704; J3411; J3475; J3480; J3490; J7030; J7040; J7050

== ENCOUNTER 2020-03-09 19:15 | Emergency (ER) | payer SELFPAY ==
[2020-03-09 19:31] VITALS: BP 158/89; PULSE 97
[2020-03-09] MEDS ORDERED: Metoclopramide 10 MG/2 ML SDV IVPUSH ONE (19:44)
[2020-03-09] MEDS ORDERED: HYDROmorphone 1 MG/ML Syringe IVPUSH ONE (19:44)
[2020-03-09] MEDS ORDERED: Dextrose 5%-Lactated Ringers 1,000 ML IV SCH (19:45)
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
--- NOTE | 2020-03-10 09:02 | CR ---
PROCEDURE INFORMATION: Exam: XR Chest, 1 View Exam date and time: 03/09/2020 7:47 PM Age: 55 years old Clinical indication: Patient HX: Paroxysmal non production cough, suspect covid TECHNIQUE: Imaging protocol: XR of the chest Views: 1 view. COMPARISON: CR Chest 1V Frontal 07/20/2018 7:35 AM FINDINGS: Lungs: Streaky left perihilar opacities. No focal consolidation Pleural space: Unremarkable. No pleural effusion. No pneumothorax. Heart/Mediastinum: Unremarkable. No cardiomegaly. Bones/joints: Unremarkable. IMPRESSION: Possible left perihilar interstitial infiltrates Thank you for allowing us to participate in the care of your patient. Dictated and Authenticated by: Agustin Horvath MD 03/09/2020 9:36 PM Central Time ([place] & [place]) [facility]
== END 2020-03-09 21:55 | disposition home or self-care (01) ==
LOC: JD.ED 19:15
DX: J02.9 Acute pharyngitis, unspecified (principal); L03.115 Cellulitis of right lower limb; I10 Essential (primary) hypertension; K21.9 Gastro-esophageal reflux disease without esophagitis; G62.9 Polyneuropathy, unspecified; Z91.030 Bee allergy status; Z88.5 Allergy status to narcotic agent; Z79.899 Other long term (current) drug therapy
CPT/HCPCS: 36415; 71045; 80053; 82728; 83615; 83735; 83880; 84484; 85025; 86140; 87635; 87804; 96374; 96375; 99284; J1170; J2765; J7121; 99283; U0002

== ENCOUNTER 2021-01-03 02:01 | Emergency (ER) | payer SELFPAY ==
[2021-01-03] MEDS ORDERED: Sodium Chloride 0.9% 1,000 ML IV ONE (02:39)
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
--- NOTE | 2021-01-03 02:44 | EDM.PDOCBH ---
<Cortez Kan J - Last Filed: 01/04/21 04:27> ED HPI GENERAL MEDICAL PROBLEM - General Chief Complaint: General Stated Complaint: ROD AMB Time Seen by Provider: 01/03/21 02:11 - Related Data Allergies Allergy/AdvReac Type Severity Reaction Status Date / Time venom-honey bee Allergy Anaphylactic Verified 01/03/21 02:13 [bee venom (honey bee)] Shock morphine AdvReac Mild Headache Verified 01/03/21 02:13 Home Meds: Home Meds Lisinopril 20 mg PO DAILY 11/14/13 [History] traZODone 300 mg PO BEDTIME PRN 11/14/13 [History] Methylphenidate HCl [Ritalin] 20 mg PO BID 10/19/14 [History] Gabapentin [Neurontin] 1,200 mg PO TID 12/13/14 [History] Omeprazole [Prilosec] 40 mg PO DAILY PRN 12/13/14 [History] SUMAtriptan [Imitrex] 20 mg INH BID PRN 12/13/14 [History] Doxycycline [Vibra-Tabs] 100 mg PO Q12HR #20 tab 03/09/20 [Rx] Hydrocodone/Chlorphen P-Stirex [Hydrocodone-Chlorphen ER Susp] 5 ml PO Q12H PRN #70 ml 03/09/20 [Rx] Ondansetron [Zofran] 4 mg BUCCAL Q6H PRN #10 tab 03/09/20 [Rx] oxyCODONE ER [OxyCONTIN] 40 mg PO BID 01/03/21 [History] COURSE, BEHAVIORAL HEALTH COMP - Course Re-Assessment/Re-Exam: Care of patient assumed from Dr. Corral at 0700 Patient was seen in ED by staff member from [facility] division, with determination that he was not appropriate for acute referral to [facility] Patient re-stated his concern the his body organs were failing and he was entering "end-of-life" He stated further that he only came in because his made him do so, otherwise he would have stayed at home He was advised that no indication of serious medical illness was apparent Primary care follow-up was advised Patient was felt to be stable for outpatient follow-up Return precautions were provided Departure - Departure Time of Disposition: 09:52 Disposition: Home, Self-Care 01 Clinical Impression: Substance abuse, Dysphoric mood, Anorexia - Discharge Information *PRESCRIPTION DRUG MONITORING PROGRAM REVIEWED*: Not Applicable *COPY OF PRESCRIPTION DRUG MONITORING REPORT IN PATIENT KEKE: Not Applicable Instructions: Substance Use Disorder, Dysphoria Referrals: PCP,Not In Area [Primary Care Provider] - [facility] [Outside] Forms: ED Department Discharge Additional Instructions: Return if condition worsens May resume general activity and regular diet as tolerated Continue usual medications Follow-up with primary care provider is recommended within 3 to 5 days <Young Rose - Last Filed: 01/04/21 19:21> ED HPI GENERAL MEDICAL PROBLEM - General Source of Information: Reports: Patient History Limitations: Reports: No Limitations - History of Present Illness INITIAL COMMENTS - FREE TEXT/NARRATIVE: Mr. Cyr is a very pleasant 55-year-old gentleman who is now brought to the ED by EMS because he feels like he is suffering from "organ failure" since this past 12/29/2020. The only specific symptom that he is able to provide is that he has had a decreased appetite, but he also states that for the last few days, he has not been worried about the future. The patient reports that he had previously been prescribed oxycodone 40 mg po BID, but that about 7 months or so ago, he started buying street oxycodone. His urine drug screen subsequently tested positive for fentanyl, therefore his prescribing physician stopped prescribing oxycodone for him. He states that ever since then, he has been purchasing street oxycodone and taking up to 800 mg a day. He states that he snorts it, only. He also reports that he has not taken any of his usual medications for the past 2 weeks, because "I just haven't". The patient has a history of binge alcoholism, but states that he hasn't had any alcohol for about 2 weeks. Here in the ED, the patient's initial BP is found to be elevated at 166/100, otherwise, he is hemodynamically stable, afebrile, saturating 97% on room air. He appears to be relatively calm, in no acute distress. Prior to Friday, the patient denies having a recent fever, chills, sore throat, ear pain, nasal or sinus congestion, cough, dyspnea, chest pain, palpitations, nausea, vomiting, constipation, diarrhea, abdominal pain, urinary symptoms, recent weight gain or weight loss, recent bloody bowel movements or black bowel movements, recent joint aches, headaches, or rashes. The patient does not recall the name of his PCP, in [place]. He states that he has received 2 COVID vaccinations. Bilateral Leg Pain Score (Numeric/FACES): 8 Past Medical History HEENT History: Reports: Impaired Vision Cardiovascular History: Reports: Hypertension Respiratory History: Reports: Sleep Apnea (resolved after tonsillectomy/adenoidectomy/uvulectomy) Gastrointestinal History: Reports: GERD Musculoskeletal History: Reports: Fracture (bilateral tib/fib) Neurological History: Reports: Migraines, Neuropathy, Peripheral (BLEs, Lt > Rt) Psychiatric History: Reports: ADHD, Anxiety, Bipolar, Depression, PTSD Endocrine/Metabolic History: Reports: Hyperthyroidism - Infectious Disease History Infectious Disease History: Reports: Chicken Pox, MRSA - Past Surgical History HEENT Surgical History: Reports: Adenoidectomy, Oral Surgery (Uvulectomy), Tonsillectomy Neurological Surgical History: Reports: Lumbar Spine (laminectomy) Musculoskeletal Surgical History: Reports: Knee Replacement (right), ORIF (bilateral tib/fib), Other (See Below) (Bilateral leg fasciotomies) Social & Family History - Tobacco Use Tobacco Use Status *Q: Current Every Day Tobacco User Years of Tobacco use: 36 Packs/Tins Daily: 0.3 Packs/Tins Daily Comment: Down from 1 ppd Tobacco Use Comment: Started smoking 1983 - Caffeine Use Caffeine Use: Reports: Energy Drinks - Alcohol Use Alcohol Use History: Yes Alcohol Use Frequency: Binges - Recreational Drug Use Recreational Drug Use: Yes Drug Use in Last 12 Months: Yes Recreational Drug Type: Reports: Cocaine (last snorted, smoked Mar 2020), Marijuana/Hashish (las smoked May 2020), Other (see below) (Street oxycodone containing fentanyl, daily) - Living Situation & Occupation Living situation: Reports: (), with Significant Other ( Girlfriend) Occupation: Unemployed ED ROS GENERAL - Review of Systems Review Of Systems: Comprehensive ROS is negative, except as noted in HPI. Musculoskeletal: Reports: Back Pain (chronic) ED EXAM, BEHAVIORAL HEALTH - Physical Exam Exam: See Below Exam Limited By: No Limitations General Appearance: Alert, WD/WN, No Apparent Distress Eye Exam: Bilateral Eye: EOMI, Normal Inspection Ears: Normal External Exam, Hearing Grossly Normal Nose: Normal Inspection Throat/Mouth: Normal Inspection, Normal Lips, Normal Voice, No Airway Compromise Head: Atraumatic, Normocephalic Neck: Normal Inspection, Full Range of Motion Respiratory/Chest: No Respiratory Distress, Lungs Clear, Normal Breath Sounds, No Accessory Muscle Use Cardiovascular: Normal Peripheral Pulses, Regular Rate, Rhythm, No Edema, No Gallop, No JVD, No Murmur, No Rub GI/Abdominal: Normal Bowel Sounds, Soft, Non-Tender, No Organomegaly, No Distention, No Abnormal Bruit, No Mass Back Exam: Normal Inspection, Full Range of Motion, NT Extremities: Normal Inspection, Normal Range of Motion, No Pedal Edema, Normal Capillary Refill Neurological: Alert, Normal Cognition, No Motor/Sensory Deficits, Oriented x 3 Psychiatric: Normal Affect Skin Exam: Warm, Dry, Intact, Normal color, No rash #1 Interpretation EKG Date: 01/03/21 Time: 03:26 Rhythm: NSR Rate (Beats/Min): 67 [place]: LAD-Left [place] Deviation P-Wave: Enlarged (LAE) QRS: Normal ST-T: Normal QT: Normal Comparison: Change From Previous EKG (LAD new since 07/18/2018) COURSE, BEHAVIORAL HEALTH COMP - Course Vital Signs: Last Vital Signs Temp 36.4 C 01/03/21 08:54 Pulse 71 01/03/21 08:54 Resp 20 01/03/21 08:54 BP 137/99 H 01/03/21 08:54 Pulse Ox 96 01/03/21 08:54 Orders, Labs, Meds: Laboratory Tests 01/03/21 01/03/21 01/03/21 Range/Units 03:00 03:00 03:00 WBC 9.61 H (4.23-9.07) K/mm3 RBC 4.71 (4.63-6.08) M/mm3 Hgb 14.9 D (13.7-17.5) gm/dl Hct 44.4 (40.1-51.0) % MCV 94.3 H (79.0-92.2) fl MCH 31.6 (25.7-32.2) pg MCHC 33.6 (32.2-35.5) g/dl RDW Std Deviation 46.3 H (35.1-43.9) fL Plt Count 345 H D (163-337) K/mm3 MPV 10.3 (9.4-12.3) fl Neutrophils % (Manual) 68 H (40-60) % Band Neutrophils % 0 (0-10) % Lymphocytes % (Manual) 21 (20-40) % Atypical Lymphs % 0 % Monocytes % (Manual) 11 H (2-10) % Eosinophils % (Manual) 0 L (0.8-7.0) % Basophils % (Manual) 0 L (0.2-1.2) Platelet Estimate Adequate RBC Morph Comment Normal Sodium 142 (136-145) mEq/L Potassium 3.5 (3.5-5.1) mEq/L Chloride 105 (98-107) mEq/L Carbon Dioxide 23 (21-32) mEq/L Anion Gap 17.5 H (5-15) BUN 16 (7-18) mg/dL Creatinine 1.0 (0.7-1.3) mg/dL Est Cr Clr Drug Dosing TNP Estimated GFR (MDRD) > 60 (>60) mL/min BUN/Creatinine Ratio 16.0 (14-18) Glucose 107 H (70-99) mg/dL Lactic Acid (0.4-2.0) mmol/L Calcium 9.4 (8.5-10.1) mg/dL Magnesium 2.1 (1.8-2.4) mg/dL Total Bilirubin 0.4 (0.2-1.0) mg/dL AST 16 (15-37) U/L ALT 39 (16-63) U/L Alkaline Phosphatase 66 (46-116) U/L Creatine Kinase 153 (39-308) U/L Troponin I < 0.017 (0.00-0.056) ng/mL C-Reactive Protein 2.4 H* (<1.0) mg/dL NT-Pro-B Natriuret Pep (0-125) pg/mL Total Protein 8.7 H (6.4-8.2) g/dl Albumin 3.6 (3.4-5.0) g/dl Globulin 5.1 gm/dL Albumin/Globulin Ratio 0.7 L (1-2) Lipase 221 (73-393) U/L TSH 3rd Generation 0.517 (0.358-3.74) uIU/mL Urine Color (Yellow) Urine Appearance (Clear) Urine pH (5.0-8.0) Ur Specific [place] (1.005-1.030) Urine Protein (Negative) Urine Glucose (UA) (Negative) Urine Ketones (Negative) Urine Occult Blood (Negative) Urine Nitrite (Negative) Urine Bilirubin (Negative) Urine Urobilinogen (0.2-1.0) Ur Leukocyte Esterase (Negative) U Hyaline Cast (Auto) (0-5) /lpf Urine RBC (0-5) /hpf Urine WBC (0-5) /hpf Ur Epithelial Cells (0-5) /hpf Urine Bacteria (FEW) /hpf Urine Mucus (FEW) /hpf Salicylates 3.0 (2.8-20) mg/dL Urine Opiates Screen (HADGBM=858) Ur Buprenorphine Scrn (CUTOFF=10) Ur Oxycodone Screen (BZW0RF=787) Urine Methadone Screen (ZMI4WV=236) Ur Propoxyphene Screen (MFAVGE=552) Acetaminophen 0 L (10-30) ug/mL Ur Barbiturates Screen (MSUQVH=700) Ur Tricyclics Screen (VJJZRN=037) Ur Phencyclidine Scrn (CUTOFF=25) Ur Amphetamine Screen (NLDZAR=867) U Methamphetamines Scrn (MTBUNA=308) U Benzodiazepines Scrn (RJXOFW=227) U Cocaine Metab Screen (UDHPZP=341) U Marijuana (THC) Screen (CUTOFF=50) Ethyl Alcohol 0.00 (0.00) gm% SARS-CoV-2 RNA (AMBER) (NEGATIVE) 01/03/21 01/03/21 01/03/21 Range/Units 03:00 03:00 03:02 WBC (4.23-9.07) K/mm3 RBC (4.63-6.08) M/mm3 Hgb (13.7-17.5) gm/dl Hct (40.1-51.0) % MCV (79.0-92.2) fl MCH (25.7-32.2) pg MCHC (32.2-35.5) g/dl RDW Std Deviation (35.1-43.9) fL Plt Count (163-337) K/mm3 MPV (9.4-12.3) fl Neutrophils % (Manual) (40-60) % Band Neutrophils % (0-10) % Lymphocytes % (Manual) (20-40) % Atypical Lymphs % % Monocytes % (Manual) (2-10) % Eosinophils % (Manual) (0.8-7.0) % Basophils % (Manual) (0.2-1.2) Platelet Estimate RBC Morph Comment Sodium (136-145) mEq/L Potassium (3.5-5.1) mEq/L Chloride (98-107) mEq/L Carbon Dioxide (21-32) mEq/L Anion Gap (5-15) BUN (7-18) mg/dL Creatinine (0.7-1.3) mg/dL Est Cr Clr Drug Dosing Estimated GFR (MDRD) (>60) mL/min BUN/Creatinine Ratio (14-18) Glucose (70-99) mg/dL Lactic Acid 1.0 (0.4-2.0) mmol/L Calcium (8.5-10.1) mg/dL Magnesium (1.8-2.4) mg/dL Total Bilirubin (0.2-1.0) mg/dL AST (15-37) U/L ALT (16-63) U/L Alkaline Phosphatase (46-116) U/L Creatine Kinase (39-308) U/L Troponin I (0.00-0.056) ng/mL C-Reactive Protein (<1.0) mg/dL NT-Pro-B Natriuret Pep 31 (0-125) pg/mL Total Protein (6.4-8.2) g/dl Albumin (3.4-5.0) g/dl Globulin gm/dL Albumin/Globulin Ratio (1-2) Lipase (73-393) U/L TSH 3rd Generation (0.358-3.74) uIU/mL Urine Color (Yellow) Urine Appearance (Clear) Urine pH (5.0-8.0) Ur Specific [place] (1.005-1.030) Urine Protein (Negative) Urine Glucose (UA) (Negative) Urine Ketones (Negative) Urine Occult Blood (Negative) Urine Nitrite (Negative) Urine Bilirubin (Negative) Urine Urobilinogen (0.2-1.0) Ur Leukocyte Esterase (Negative) U Hyaline Cast (Auto) (0-5) /lpf Urine RBC (0-5) /hpf Urine WBC (0-5) /hpf Ur Epithelial Cells (0-5) /hpf Urine Bacteria (FEW) /hpf Urine Mucus (FEW) /hpf Salicylates (2.8-20) mg/dL Urine Opiates Screen (IVMGLE=184) Ur Buprenorphine Scrn (CUTOFF=10) Ur Oxycodone Screen (TOF2JE=349) Urine Methadone Screen (VTP4OZ=326) Ur Propoxyphene Screen (YJFLHG=154) Acetaminophen (10-30) ug/mL Ur Barbiturates Screen (NCCJMN=024) Ur Tricyclics Screen (JHYVFN=939) Ur Phencyclidine Scrn (CUTOFF=25) Ur Amphetamine Screen (CIJPQP=224) U Methamphetamines Scrn (FYUVLM=193) U Benzodiazepines Scrn (FBNTWX=290) U Cocaine Metab Screen (ACBENL=710) U Marijuana (THC) Screen (CUTOFF=50) Ethyl Alcohol (0.00) gm% SARS-CoV-2 RNA (AMBER) Negative (NEGATIVE) 01/03/21 01/03/21 Range/Units 05:28 05:30 WBC (4.23-9.07) K/mm3 RBC (4.63-6.08) M/mm3 Hgb (13.7-17.5) gm/dl Hct (40.1-51.0) % MCV (79.0-92.2) fl MCH (25.7-32.2) pg MCHC (32.2-35.5) g/dl RDW Std Deviation (35.1-43.9) fL Plt Count (163-337) K/mm3 MPV (9.4-12.3) fl Neutrophils % (Manual) (40-60) % Band Neutrophils % (0-10) % Lymphocytes % (Manual) (20-40) % Atypical Lymphs % % Monocytes % (Manual) (2-10) % Eosinophils % (Manual) (0.8-7.0) % Basophils % (Manual) (0.2-1.2) Platelet Estimate RBC Morph Comment Sodium (136-145) mEq/L Potassium (3.5-5.1) mEq/L Chloride (98-107) mEq/L Carbon Dioxide (21-32) mEq/L Anion Gap (5-15) BUN (7-18) mg/dL Creatinine (0.7-1.3) mg/dL Est Cr Clr Drug Dosing Estimated GFR (MDRD) (>60) mL/min BUN/Creatinine Ratio (14-18) Glucose (70-99) mg/dL Lactic Acid (0.4-2.0) mmol/L Calcium (8.5-10.1) mg/dL Magnesium (1.8-2.4) mg/dL Total Bilirubin (0.2-1.0) mg/dL AST (15-37) U/L ALT (16-63) U/L Alkaline Phosphatase (46-116) U/L Creatine Kinase (39-308) U/L Troponin I (0.00-0.056) ng/mL C-Reactive Protein (<1.0) mg/dL NT-Pro-B Natriuret Pep (0-125) pg/mL Total Protein (6.4-8.2) g/dl Albumin (3.4-5.0) g/dl Globulin gm/dL Albumin/Globulin Ratio (1-2) Lipase (73-393) U/L TSH 3rd Generation (0.358-3.74) uIU/mL Urine Color Yellow (Yellow) Urine Appearance Clear (Clear) Urine pH 7.0 (5.0-8.0) Ur Specific [place] 1.020 (1.005-1.030) Urine Protein Trace H (Negative) Urine Glucose (UA) Negative (Negative) Urine Ketones Trace H (Negative) Urine Occult Blood Negative (Negative) Urine Nitrite Negative (Negative) Urine Bilirubin Negative (Negative) Urine Urobilinogen 0.2 (0.2-1.0) Ur Leukocyte Esterase Negative (Negative) U Hyaline Cast (Auto) 0-5 (0-5) /lpf Urine RBC Not seen (0-5) /hpf Urine WBC Not seen (0-5) /hpf Ur Epithelial Cells 0-5 (0-5) /hpf Urine Bacteria Rare (FEW) /hpf Urine Mucus Moderate H (FEW) /hpf Salicylates (2.8-20) mg/dL Urine Opiates Screen Negative (YTUYRF=697) Ur Buprenorphine Scrn Negative (CUTOFF=10) Ur Oxycodone Screen Negative (FIS2HF=112) Urine Methadone Screen Negative (DYJ4FB=014) Ur Propoxyphene Screen Negative (ZNDLYD=438) Acetaminophen (10-30) ug/mL Ur Barbiturates Screen Negative (HYAVJX=516) Ur Tricyclics Screen Negative (XMOSWT=877) Ur Phencyclidine Scrn Negative (CUTOFF=25) Ur Amphetamine Screen Negative (NNZUFK=358) U Methamphetamines Scrn Negative (QZCMRF=094) U Benzodiazepines Scrn Negative (IAFEOP=271) U Cocaine Metab Screen Presumptive positive H (RXYQHE=079) U Marijuana (THC) Screen Negative (CUTOFF=50) Ethyl Alcohol (0.00) gm% SARS-CoV-2 RNA (AMBER) (NEGATIVE) Medications Discontinued Medications Generic Name Dose Route Start Last Admin Trade Name Freq PRN Reason Stop Dose Admin Sodium Chloride 1,000 mls @ 999 mls/hr 01/03/21 02:39 01/03/21 03:07 Normal Saline IV 01/03/21 03:39 999 mls/hr ONETIME ONE Administration Medical Clearance: 01/03/21 02:40 As above, the patient reports that he was previously prescribed 40 mg of oxycodone twice daily, but that about 7 months ago, he started buying street oxycodone, which contained fentanyl, and his urine returned positive for that, therefore his prescribing physician stopped prescribing oxycodone for him. He has been snorting street oxycodone in large quantities for the past 7 months. He now comes to the ED stating that he feels like his organs are shutting down, but the only specific symptom he can give us is that he has a decreased appetite, and that he is not worried about the future. His physical exam is grossly unremarkable. I don't believe he is suicidal, but he will likely require psychiatric hospitalization for [id number] drug use. I have ordered a work-up that includes numerous blood tests, 2 sets of blood cultures, a urinalysis and urine drug screen, a swab for the SARS-CoV-2 virus, a chest x- ray, and an ECG. In the meantime, the patient will be given IV fluid. 01/03/21 04:46 Two-view chest radiograph appears to be grossly normal. The cardiac silhouette is within normal limits. No pulmonary vascular congestion. No pleural effusions. No focal infiltrate. No pneumothorax. Formal read per the Radiologist pending. The patient's CBC is remarkable for slight leukocytosis of 9.61, but with 0% bandemia, and thrombocytosis of 345,000, with the remainder of his CBC being unremarkable. His CMP is remarkable for slight hyperglycemia of 107, and is otherwise unremarkable. His magnesium level is within normal limits at 2.1. His lactic acid level is within normal limits at 1.0. His lipase level is within normal limits at 221. His TSH is within normal limits at 0.517. His CPK is within normal limits at 153. His troponin is undetectably low. His pro-BNP is within normal limits at 31. His CRP is mildly elevated at 2.4. His salicylate level is within normal limits at 3.0. His acetaminophen level is 0. His EtOH level is 0.00. His swab for the SARS-CoV-2 virus is negative. Results of his D-dimer, urinalysis, and urine drug screen are still pending. 01/03/21 05:44 The patient's urinalysis is unremarkable. The urine drug screen is pending. I contacted the lab regarding the delay in the D-dimer. I was told that they did not draw enough blood to run a D-dimer, and that the patient refused to be drawn second time. 01/03/21 05:58 The patient's urine drug screen is positive for cocaine, and is otherwise negative. We will contact [facility] to see if they would be willing to come to the ED to evaluate the patient. 01/03/21 06:25 Case discussed with Roxana at [facility] at 06:20. She will come by the ED in about half an hour to evaluate the patient. 01/03/21 07:12 [facility] is here to evaluate the patient. Case discussed with Dr. Kan, and care of the patient turned over to him at this time, for change of shift. 01/04/21 19:20 Sepsis Event Note (ED) - Evaluation Sepsis Screening Result: No Definite Risk
[2021-01-03 03:51] LABS: ACETAMINOPHEN 0 ug/mL (10-30)
--- NOTE | 2021-01-03 08:10 | CR ---
Chest: 2 views of the chest were obtained. Comparison: Prior chest x-ray of 07/20/18 and 05/31/14. Heart size and mediastinum are within normal limits. Nodule is noted within the left midlung which is believed to be stable from old chest x-rays. Lungs otherwise are clear. No acute parenchymal change is appreciated. Minimal scoliosis is noted within the spine. No additional bony abnormality is appreciated. Impression: 1. Stable findings as noted above. 2. No acute intracranial abnormality is seen. Diagnostic code #2
[2021-01-03 08:54] VITALS: BP 137/99; PULSE 71
== END 2021-01-03 10:15 | disposition home or self-care (01) ==
LOC: JD.ED 02:01
DX: R63.0 Anorexia (principal); F39 Unspecified mood [affective] disorder; F19.10 Other psychoactive substance abuse, uncomplicated; I10 Essential (primary) hypertension; K21.9 Gastro-esophageal reflux disease without esophagitis; Z72.0 Tobacco use; Z79.899 Other long term (current) drug therapy; Z20.822 Contact with and (suspected) exposure to COVID-19; Z91.030 Bee allergy status; Z88.5 Allergy status to narcotic agent
CPT/HCPCS: 36415; 71046; 80053; 80143; 80179; 80306; 80307; 81001; 82550; 83605; 83690; 83735; 83880; 84443; 84484; 85007; 85027; 86140; 87040; 87635; 93005; 99284; J7030; U0002

== ENCOUNTER 2021-02-24 17:52 | Emergency (ER) | payer SELFPAY ==
[2021-02-24 17:59] VITALS: BP 127/107; PULSE 93
[2021-02-24] MEDS ORDERED: Sodium Chloride 0.9% 10 ML Syringe FLUSH PRN (18:10)
[2021-02-24] MEDS ORDERED: HYDROmorphone 1 MG/ML Syringe IVPUSH ONE (18:11)
[2021-02-24] MEDS ORDERED: Metoclopramide 10 MG/2 ML SDV IVPUSH ONE (18:12)
--- NOTE | 2021-02-24 18:13 | EDM.PDOC ---
ED HPI GENERAL MEDICAL PROBLEM - General Chief Complaint: Chest Pain Stated Complaint: [facility] Time Seen by Provider: 02/24/21 18:00 Source of Information: Reports: Patient, EMS History Limitations: Reports: No Limitations - History of Present Illness INITIAL COMMENTS - FREE TEXT/NARRATIVE: 56-year-old male presents to the ED per [facility] complaining of left lateral chest wall pain. He states that he got tripped up and fell on top of his night table or dresser in his bedroom yesterday p.m. injuring his left lateral chest wall. He cannot member if it knocked the wind out of him or not. Patient is known to imbibe alcohol on a regular basis. He appears to be mildly intoxicated at this time. He is complaining of pain primarily in his left lateral ribs worse today than it was last evening. Onset: Sudden Onset Date: 02/23/21 Onset Time: 20:00 (Exact time of injury is unclear.) Duration: Hour(s):, Getting Worse Location: Reports: Chest (Left lateral chest wall) Quality: Reports: Ache, Sharp, Stabbing Severity: Moderate (Sharp stabbing pain with inspiration 7-8 out of 10) Improves with: Reports: Rest Worsens with: Reports: Other (Deep breathing or coughing makes the pain much worse), Movement Context: Reports: Trauma (He reports that he got tripped up and fell in his bedroom at home landing on either the dresser or the night table with blunt trauma to his left lateral chest wall yesterday p.m. He is rather vague about what time this occurred. Of note the patient tends to drink alcohol on a daily basis and therefo). Denies: Activity, Exercise, Lifting, Sick Contact Associated Symptoms: Reports: Chest Pain, Shortness of Breath (Subjective dyspnea is). 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 (see below) Left Chest Pain Score (Numeric/FACES): 5 - Related Data Allergies Allergy/AdvReac Type Severity Reaction Status Date / Time venom-honey bee Allergy Anaphylactic Verified 02/24/21 17:59 [bee venom (honey bee)] Shock morphine AdvReac Mild Headache Verified 02/24/21 17:59 Home Meds: Home Meds Lisinopril 20 mg PO DAILY 11/14/13 [History] traZODone 300 mg PO BEDTIME PRN 11/14/13 [History] Methylphenidate HCl [Ritalin] 20 mg PO BID 10/19/14 [History] Gabapentin [Neurontin] 1,200 mg PO TID 12/13/14 [History] Omeprazole [Prilosec] 40 mg PO DAILY PRN 12/13/14 [History] SUMAtriptan [Imitrex] 20 mg INH BID PRN 12/13/14 [History] Doxycycline [Vibra-Tabs] 100 mg PO Q12HR #20 tab 03/09/20 [Rx] Hydrocodone/Chlorphen P-Stirex [Hydrocodone-Chlorphen ER Susp] 5 ml PO Q12H PRN #70 ml 03/09/20 [Rx] Ondansetron [Zofran] 4 mg BUCCAL Q6H PRN #10 tab 03/09/20 [Rx] oxyCODONE ER [OxyCONTIN] 40 mg PO BID 01/03/21 [History] Hydrocodone/Acetaminophen [HYDROcodone-Acetaminophen 5-325 MG] 1 - 2 each PO Q4H #24 tab 02/24/21 [Rx] Past Medical History HEENT History: Reports: Impaired Vision Cardiovascular History: Reports: Hypertension Respiratory History: Reports: Sleep Apnea Other Respiratory History: sleep apnea resolved with "nose and throat surgery" Gastrointestinal History: Reports: GERD Other Genitourinary History: had renal failure Musculoskeletal History: Reports: Fracture Neurological History: Reports: Migraines, Neuropathy, Peripheral Other Neuro History: peripheral neuropathy both legs with weakness Lt. > Rt. Psychiatric History: Reports: ADHD, Anxiety, Bipolar, Depression, PTSD Endocrine/Metabolic History: Reports: Hyperthyroidism Dermatologic History: Reports: Cellulitis - Infectious Disease History Infectious Disease History: Reports: Chicken Pox, MRSA - Past Surgical History HEENT Surgical History: Reports: Adenoidectomy, Oral Surgery, Tonsillectomy Other HEENT Surgeries/Procedures: Adennoids, and uvula Other Respiratory Surgeries/Procedures: sleep apnea resolved with T and A with uvula surgery Neurological Surgical History: Reports: Lumbar Spine Musculoskeletal Surgical History: Reports: Knee Replacement, ORIF, Other (See Below) Other Musculoskeletal Surgeries/Procedures:: multiple surgeries, knees to ankles from crush injury, back surgery - History Comment History Comment: Chronic pain syndrome Social & Family History - Family History Family Medical History: No Pertinent Family History - Tobacco Use Tobacco Use Status *Q: Unknown Ever Used Tobacco - Caffeine Use Caffeine Use: Reports: Energy Drinks - Sexual History Sexual History: Reports: Sexually Active - Living Situation & Occupation Living situation: Reports: (), with Significant Other (Girlfriend) Occupation: Unemployed ED ROS GENERAL - Review of Systems Review Of Systems: See Below Constitutional: Reports: Malaise, Weakness, Fatigue, Decreased Appetite. Denies: Fever, Chills, Weight Loss HEENT: Reports: Glasses Respiratory: Reports: Shortness of Breath. Denies: Wheezing, Pleuritic Chest Pain, Cough, Sputum, Hemoptysis Cardiovascular: Reports: Chest Pain, Blood Pressure Problem, Dyspnea on Exertion. Denies: Claudication (See history of present illness), Edema, Lightheadedness, Orthopnea, Palpitations Endocrine: Reports: Fatigue GI/Abdominal: Reports: Constipation : Reports: Frequency, Other (Nocturia usually x2.) Musculoskeletal: Reports: Neck Pain (Occasional low back pain), Back Pain, Joint Pain (Occasional pain in the knees) Skin: Reports: No Symptoms Neurological: Reports: Dizziness, Difficulty Walking (Ataxic gait), Weakness. Denies: Headache, Numbness, Syncope, Tingling Psychiatric: Reports: Anxiety, Depression Hematologic/Lymphatic: Reports: No Symptoms Immunologic: Reports: No Symptoms ED EXAM, GENERAL - Physical Exam Exam: See Below Exam Limited By: Other (Very vague historian) General Appearance: No Apparent Distress, Lethargic (Mildly lethargic), Other (Temperature is 36.4 degrees heart rate 93 and sinus respiratory is 15 with O2 sats of 98% room air. BP is 127/107 although as this is unlikely to be true since the pulse pressure is too close together.) Eye Exam: Bilateral Eye: Normal Inspection (No blepharal pallor or scleral icterus.), Nystagmus (Mild nystagmus on lateral gaze bilaterally.), PERRL Neck: Normal Inspection, Supple, Non-Tender, Full Range of Motion. No: Lymphadenopathy (L), Lymphadenopathy (R) Respiratory/Chest: No Respiratory Distress, No Accessory Muscle Use, Decreased Breath Sounds (Decreased air entry to both posterior lung beltran), Splinting (Mild splinting respirations on the left side), Other (Pain to palpation left lateral ribs 8 9 and 10 with no palpable crepitus or subcutaneous emphysema.). No: Rales, Rhonchi, Wheezing Cardiovascular: Normal Peripheral Pulses ( There were no abrasions or contusions to the area either.), Regular Rate, Rhythm, No Edema, No Gallop, No Murmur, No Rub Peripheral Pulses: 2+: Carotid (L), Carotid (R), Posterior Tibial (L), Posterior Tibial (R), Dorsalis Pedis (L), Dorsalis Pedis (R) GI/Abdominal: Normal Bowel Sounds, Soft, Non-Tender, No Organomegaly, No Distention. No: Guarding, Rigid, Rebound, Tender Back Exam: Normal Inspection. No: CVA Tenderness (L), CVA Tenderness (R), Paraspinal Tenderness, Vertebral Tenderness Extremities: Normal Inspection, Normal Range of Motion, Non-Tender, No Pedal Edema Neurological: Alert, Oriented, CN II-XII Intact, Slow to Respond Psychiatric: Flat Affect Skin Exam: Warm, Dry, Intact, Normal Color, No Rash Course - Vital Signs Last Recorded V/S: Last Vital Signs Temp 36.4 C 02/24/21 17:56 Pulse 93 02/24/21 17:56 Resp 15 02/24/21 17:56 BP 127/107 H 02/24/21 17:56 Pulse Ox 98 02/24/21 17:56 - Orders/Labs/Meds Orders: Active Orders 24 hr Category Date Time Status Peripheral IV Care [RC] . DIRECTED Care 02/24/21 18:10 Active Sodium Chloride 0.9% [Saline Flush] Med 02/24/21 18:10 Active 10 ml FLUSH ASDIRECTED PRN Peripheral IV Insertion Adult [OM.PC] Stat Oth 02/24/21 18:10 Ordered Medication Orders Sodium Chloride (Sodium Chloride 0.9% 10 Ml Syringe) 10 ml FLUSH ASDIRECTED PRN PRN Reason: Keep Vein Open Last Admin: 02/24/21 18:43 Dose: 10 ml Documented by: CLARA Meds: Medications Generic Name Dose Route Start Last Admin Trade Name Freq PRN Reason Stop Dose Admin Sodium Chloride 10 ml 02/24/21 18:10 02/24/21 18:43 Sodium Chloride 0.9% 10 Ml Syringe FLUSH 10 ml ASDIRECTED PRN Administration Keep Vein Open Discontinued Medications Generic Name Dose Route Start Last Admin Trade Name Cristian PRN Reason Stop Dose Admin Hydromorphone HCl 1 mg 02/24/21 18:11 02/24/21 18:35 Hydromorphone 1 Mg/Ml Syringe IVPUSH 02/24/21 18:12 1 mg ONETIME ONE Administration Metoclopramide HCl 10 mg 02/24/21 18:12 02/24/21 18:35 Metoclopramide 10 Mg/2 Ml Sdv IVPUSH 02/24/21 18:13 10 mg ONETIME ONE Administration - Radiology Interpretation Free Text/Narrative:: 56-year-old male presents to the ED per [facility] complaining of left lateral chest pain. He states that he got tripped up and fell and landed on the night table in his bedroom last evening. He is known to drink alcohol fairly often to excess. He is unclear about what timeframe this may have occurred in. He is complaining of pain left lateral chest with deep breathing and movement. On palpation he has some tenderness to ribs 8, 9 and 10 left lateral chest wall without crepitus or obvious deformity and no subcutaneous emphysema. He is unable to stand for normal 5 view chest x-rays. He will therefore have CT of his chest performed without contrast so I can also visualize his spleen and kidney on the left side. Will be given Dilaudid 1 mg IV and Reglan 10 mg IV for pain relief as he is having difficulty lying flat to facilitate CT exam. - Re-Assessments/Exams Free Text/Narrative Re-Assessment/Exam: 02/24/21 19:06 CT chest has been completed without contrast. Heart and mediastinum to be normal. Aorta is normal. Multiple small mediastinal lymph nodes are seen which appear to be within normal limits. No axillary adenopathy is seen. No pericardial thickening is seen. No injuries to the underlying lungs are appreciated. He does have bullous emphysematous changes particularly noted in both apices of the lungs(subpleural emphysematous blebs). Mild interstitial changes seen throughout the lungs most likely representing mild pulmonary fibrosis. No pleural effusion or pneumothorax is seen. Bone window settings are reviewed. Fractures noted within the anterior lateral third left rib which shows minimal displacement. Slight deformity is seen within the lateral seventh rib compatible with an old healed fracture. Thoracic spine shows nothing acute. Sternum also is normal. Visualized portions of the upper abdominal organs i.e. spleen kidneys pancreas and liver are all normal as well. He does have scattered increased stool throughout the colon compatible with mild constipation. I have discussed the findings with the patient. The plan will be to place him on hydrocodone 5/325 mg tablets 1 or 2 every 6 hours as needed for pain relief for the next week to 10 days. Departure - Departure Time of Disposition: 19:18 Disposition: Home, Self-Care 01 Reason for Transfer *Q: Other Condition: Fair Clinical Impression: Traumatic injury of chest wall Fracture of rib Qualifiers: Encounter type: initial encounter Rib fracture type: single rib Fracture type: closed Laterality: left Qualified Code(s): S22.32XA - Fracture of one rib, left side, initial encounter for closed fracture Prescriptions: Hydrocodone/Acetaminophen [HYDROcodone-Acetaminophen 5-325 MG] 1 - 2 each PO Q4H #24 tab Referrals: PCP,None [Primary Care Provider] - Forms: ED Department Discharge, ED Return to Work/School Form Additional Instructions: Evaluation in the emergency room today in regards to a fall at home last evening with blunt force trauma to your left chest wall with increasing pain today. Examination reveals tenderness of ribs 8 9 and [address] scan of the chest was carried out after intravenous pain medication was given so that you could lie flat for the CT scan. The CT scan shows evidence of significant emphysema changes in both lungs. There was no abnormality of the heart or great vessels identified. No injury to the underlying lung identified. There is a hairline crack in left rib #3 laterally but no other cracks were identified that were new. There is an old healed fracture in ribs numbers 7 and 8. Expect gradual improvement over the next 7 to 10 days. May use hydrocodone 5/325 mg tablets 1 or 2 every 4-6 hours as necessary for pain relief but she cannot operate a motor vehicle while taking these stronger pain medications. Follow-up with personal care physician if any further problems occur Sepsis Event Note (ED) - Evaluation Sepsis Screening Result: No Definite Risk - Focused Exam Vital Signs: Vital Signs Temp Pulse Resp BP Pulse Ox 02/24/21 17:56 36.4 C 93 15 127/107 H 98 - My Orders Last 24 Hours: My Active Orders 02/24/21 18:10 Peripheral IV Care [RC] . DIRECTED Sodium Chloride 0.9% [Saline Flush] 10 ml FLUSH ASDIRECTED PRN Peripheral IV Insertion Adult [OM.PC] Stat - Assessment/Plan Last 24 Hours: My Active Orders 02/24/21 18:10 Peripheral IV Care [RC] . DIRECTED Sodium Chloride 0.9% [Saline Flush] 10 ml FLUSH ASDIRECTED PRN Peripheral IV Insertion Adult [OM.PC] Stat
--- NOTE | 2021-02-24 19:09 | CT ---
CT chest Technique: Multiple axial sections through the chest were obtained. Intravenous contrast was not utilized. Reconstructed coronal and sagittal images were obtained. Comparison: No prior chest CT is available, prior chest x-ray of 01/03/21 is available. Findings: Thoracic aorta shows no aneurysm. Small mediastinal lymph nodes are seen which appear within normal limits. No axillary adenopathy is seen. No pericardial thickening is seen. Visualized upper abdominal structures show no discrete abnormality. Lung window settings were reviewed. Subpleural emphysematous blebs are noted within both lungs. Mild interstitial change is seen which is most likely represents mild fibrosis. No pneumothorax or pleural effusion is seen. Bone window settings were reviewed. Fracture is noted within the anterolateral third left rib which shows minimal displacement. Slight deformity is seen within the lateral seventh rib compatible with old healed fracture. Thoracic spine shows nothing acute. Sternum also shows nothing acute. Impression: 1. Acute fracture within the anterolateral third rib on the left side which shows minimal displacement. 2. Old healed rib fracture within the left lateral seventh rib. 3. Subpleural blebs scattered within both lungs. Interstitial change is noted which is most likely due to fibrosis. Diagnostic code #3
== END 2021-02-24 19:43 | disposition home or self-care (01) ==
LOC: JD.ED 17:52
DX: S22.32XA Fracture of one rib, left side, initial encounter for closed fracture (principal); I10 Essential (primary) hypertension; K21.9 Gastro-esophageal reflux disease without esophagitis; Z91.030 Bee allergy status; Z88.5 Allergy status to narcotic agent; Z79.899 Other long term (current) drug therapy; W01.0XXA Fall on same level from slipping, tripping and stumbling without subsequent striking against object, initial encounter; Y92.003 Bedroom of unspecified non-institutional (private) residence as the place of occurrence of the external cause
CPT/HCPCS: 71250; 96374; 96375; 99284; J1170; J2765